=== PATIENT | female | born 1980 | race Caucasian/White ===

== ENCOUNTER 2017-10-06 08:17 | Emergency (ER) | payer OTHER ==
[~2017-10-06] VITALS: Ht 185.4 cm; Wt 131.5 kg
[~2017-10-06 08:17] MED LIST: AMOCLA875 PO; Amoxicillin875 MG PO; Augmentin 500-1 EACH PO; CENTRUM ULTRA1 EACH PO; CLIN300 PO; CYCL10 PO; Flonase 0.05% N16 GM; HYDR1TAB94 PO; Hydrocodone-Ap1 EA23 PO; IBUP800 PO; MAGIC MOUTHWASH; Mobic15 MG PO; NAPR500 PO; Norco 5-325 Ta1 EACH PO; PRENATAL VITAM1 EAC2 PO; PSEU120ER PO; Prednisone20 MG PO; SULTRIDS PO; TRAZ100 PO; Ultram50 MG PO
[2017-10-06] MEDS ORDERED: CITA20 PO (08:37)
[2017-10-06] MEDS ORDERED: LISI5 PO (08:37)
[2017-10-06] MEDS ORDERED: HYDR1TAB94 PO (09:53)
[2018-08-04] MEDS ORDERED: TRAM50 PO (08:37)
== END 2017-10-06 10:15 | disposition home or self-care (01) ==
LOC: ER 08:17
DX: S93.492A Sprain of other ligament of left ankle, initial encounter (principal); S40.011A Contusion of right shoulder, initial encounter; W10.9XXA Fall (on) (from) unspecified stairs and steps, initial encounter; Z79.899 Other long term (current) drug therapy; F17.200 Nicotine dependence, unspecified, uncomplicated
CPT/HCPCS: 73610; 99283

== ENCOUNTER 2019-01-08 11:23 | Emergency (ER) | payer OTHER ==
[~2019-01-08] VITALS: Ht 182.9 cm; Wt 125.6 kg
[~2019-01-08 11:23] MED LIST changes: +CITA20 PO; +LISI5 PO; +TRAM50 PO
[2019-01-08] MEDS ORDERED: Sudogest60 MG PO (12:09)
[2019-01-08] MEDS ORDERED: Norco 5-325 Ta1 EACH PO (12:09)
[2019-01-08] MEDS ORDERED: Amoxicillin875 MG PO (12:09)
== END 2019-01-08 12:15 | disposition home or self-care (01) ==
LOC: ER 11:23
DX: J32.9 Chronic sinusitis, unspecified (principal); Z79.899 Other long term (current) drug therapy; Z79.891 Long term (current) use of opiate analgesic; F32.9 Major depressive disorder, single episode, unspecified; Z87.891 Personal history of nicotine dependence
CPT/HCPCS: 99282

== ENCOUNTER 2019-02-14 10:09 | Emergency (ER) | payer OTHER ==
[~2019-02-14] VITALS: Ht 182.9 cm; Wt 125.6 kg
[~2019-02-14 10:09] MED LIST changes: +Sudogest60 MG PO
[2019-02-14] MEDS ORDERED: Flonase 0.05% N16 GM (10:25)
[2019-02-14] MEDS ORDERED: PROBIOTIC1 EAC1 PO (10:26)
[2019-02-14] MEDS ORDERED: Verotin-Gr Cap1 EACH PO (10:26)
[2019-02-14] MEDS ORDERED: Sudogest30 MG PO (10:36)
[2019-02-14] MEDS ORDERED: Floxin10 ML TOP (10:36)
[2019-02-14] MEDS ORDERED: Cleocin HCl300 MG PO (10:36)
== END 2019-02-14 10:40 | disposition home or self-care (01) ==
LOC: ER 10:09
DX: H66.91 Otitis media, unspecified, right ear (principal); Z79.899 Other long term (current) drug therapy; Z87.891 Personal history of nicotine dependence
CPT/HCPCS: 99282

== ENCOUNTER 2019-02-21 12:58 | Emergency (ER) | payer OTHER ==
[~2019-02-21] VITALS: Ht 182.9 cm; Wt 125.6 kg
[~2019-02-21 12:58] MED LIST changes: +Cleocin HCl300 MG PO; +Floxin10 ML TOP; +PROBIOTIC1 EAC1 PO; +Sudogest30 MG PO; +Verotin-Gr Cap1 EACH PO
[2019-02-21] MEDS ORDERED: Cyclobenzaprine5 MG PO (13:27)
[2019-02-21] MEDS ORDERED: KETO10 PO (13:27)
== END 2019-02-21 14:10 | disposition home or self-care (01) ==
LOC: ER 12:58
DX: M54.41 Lumbago with sciatica, right side (principal); Z79.899 Other long term (current) drug therapy; Z87.891 Personal history of nicotine dependence
CPT/HCPCS: 96372; 99282-25; J1885

== ENCOUNTER 2019-09-07 10:38 | Day surgery (SDC) | payer OTHER ==
[~2019-09-07] VITALS: Ht 182.9 cm; Wt 140.6 kg
[~2019-09-07 10:38] MED LIST changes: +Cyclobenzaprine5 MG PO; +KETO10 PO
[2019-09-07] MEDS ORDERED: CYCL10 PO (11:30)
[2019-09-07] MEDS ORDERED: MELO7.5 PO (11:31)
[2019-09-07] MEDS ORDERED: Prinivil10 MG PO (11:31)
[2019-09-07] MEDS ORDERED: CITA20 PO (11:31)
--- NOTE | 2019-09-07 12:30 | NUR ---
09/07/19 1230 Jordan Singh IUD REMOVED WITHOUT DIFFICULTY. WONDERLY DECLINED SENDING TO PATH FOR GROSS ID HE IS ABLE TO MAKE THAT DETERMINATION.
--- NOTE | 2019-09-07 13:21 | NUR ---
09/07/19 1321 Rina Schultz PT C/O "PINCHY BURNING PAIN". GAVE PATIENT SOME CRACKERS. PLAN OF CARE IS TO MEDICATE WITH PO PAIN MED AFTER PT EATS CRACKERS.
== END 2019-09-07 14:03 | disposition home or self-care (01) ==
LOC: ORSCSDS 10:38
PROVIDERS: Obstetrics & Gynecology
PROC: 0UBC7ZX Excision of Cervix, Via Natural or Artificial Opening, Diagnostic (ICD-10-PCS; principal; 2019-09-07 12:00)
DX: N72 Inflammatory disease of cervix uteri (principal); I10 Essential (primary) hypertension; F17.210 Nicotine dependence, cigarettes, uncomplicated; E66.01 Morbid (severe) obesity due to excess calories; Z68.41 Body mass index [BMI] 40.0-44.9, adult; Z79.899 Other long term (current) drug therapy
CPT/HCPCS: 88305; J0171; J0690; J1100; J2250; J2405; J2704; J3010; J7120

== ENCOUNTER → 2021-08-07 | Outpatient (CLI) | payer OTHER ==
[~2021-08-07] MED LIST changes: +MELO7.5 PO; +Prinivil10 MG PO
[2021-08-07 15:17] LABS: CHOL/HDL RATIO 5.7; Cholesterol 232 mg/dL (50-200); HDL Cholesterol 41 mg/dL (>39); LDL/HDL RATIO 3.6; Low Density Lipoprotein Chol 147 mg/dL (0-110); Triglycerides 219 mg/dL (30-160); Very Low Density Lipoprot Chol 43 mg/dL (6-32)
[2021-08-07 15:38] LABS: Alanine Aminotransfer (ALT/SGP 37 U/L (12-78); Albumin, Blood 3.5 g/dL (3.4-5.0); Albumin/Globulin Ratio 1.1 (0.8-1.8); Alk Phos 70 U/L (50-136); Anion Gap 7 mmol/L (6-16); Aspartate Aminotrans (AST/SGOT 36 U/L (12-37); Bilirubin, Total 0.8 mg/dL (0.1-1.0); Blood Urea Nitrogen 14 mg/dL (8-24); Bun/Creatinine Ratio 19.6 (12.0-20.0); CO2, Blood 24 mmol/L (21-32); Calcium, Blood 8.8 mg/dL (8.5-10.1); Chloride, Blood 103 mmol/L (98-108); Creatinine, Blood 0.71 mg/dL (0.40-1.00); Globulin, Blood 3.3 g/dL (2.2-4.0); Glomerular Filtration Rate >60 (60-); Glucose, Blood 107 mg/dL (70-99); Potassium, Blood 4.4 mmol/L (3.5-5.5); Sodium, Blood 134 mmol/L (136-145); Total Protein, Blood 6.8 g/dL (6.4-8.2)
== END | disposition home or self-care (01) ==
LOC: LAB 12:10 → LAB SHORT 12:10
PROVIDERS: Nurse Practitioner
DX: E78.2 Mixed hyperlipidemia (principal); R73.9 Hyperglycemia, unspecified; I10 Essential (primary) hypertension
CPT/HCPCS: 80053; 80061; 83036

== ENCOUNTER 2021-10-19 17:14 | Inpatient (IN) | payer OTHER ==
[~2021-10-19] VITALS: Ht 182.9 cm; Wt 165.0 kg
[~2021-10-19 17:14] MED LIST changes: -MELO7.5 PO; +MOBIC15 MG PO
[2021-10-19 18:13] LABS: Alanine Aminotransfer (ALT/SGP 33 U/L (12-78); Albumin, Blood 3.8 g/dL (3.4-5.0); Alk Phos 87 U/L (50-136); Anion Gap 4 mmol/L (6-16); Aspartate Aminotrans (AST/SGOT 16 U/L (12-37); BASOPHILS ABSOLUTE AUTO 0.02 K/mm3 (0.00-0.23); BASOPHILS PERCENT AUTO 0 % (0-2); Bilirubin, Total 0.6 mg/dL (0.1-1.0); Blood Urea Nitrogen 12 mg/dL (8-24); Bun/Creatinine Ratio 13.5 (12.0-20.0); CO2, Blood 26 mmol/L (21-32); Calcium, Blood 9.2 mg/dL (8.5-10.1); Chloride, Blood 103 mmol/L (98-108); Creatinine, Blood 0.89 mg/dL (0.40-1.00); EOSINOPHILS ABSOLUTE AUTO 0.11 K/mm3 (0.00-0.68); EOSINOPHILS PERCENT AUTO 2 % (0-6); Globulin, Blood 3.7 g/dL (2.2-4.0); Glomerular Filtration Rate >60 (60-); Glucose, Blood 110 mg/dL (70-99); Hematocrit 40.2 % (33.0-51.0); Hemoglobin 13.8 g/dL (11.5-16.0); IMMATURE GRAN ABSOLUTE AUTO 0.01 K/mm3 (0.00-0.10); IMMATURE GRAN PERCENT AUTO 0 % (0-1); LYMPHOCYTES ABSOLUTE AUTO 2.01 K/mm3 (0.84-5.20); LYMPHOCYTES PERCENT AUTO 35 % (21-46); MONOCYTES ABSOLUTE AUTO 0.27 K/mm3 (0.16-1.47); MONOCYTES PERCENT AUTO 5 % (4-13); Mean Corpuscular HGB 29.7 pg (26.0-34.0); Mean Corpuscular HGB Conc 34.3 g/dL (31.5-36.5); Mean Corpuscular Volume 87 fL (80-100); Mean Platelet Volume 10.6 fL (9.1-12.4); NEUTROPHILS ABSOLUTE AUTO 3.41 K/mm3 (1.96-9.15); NEUTROPHILS PERCENT AUTO 59 % (41-73); Platelet Count 255 K/mm3 (150-400); Potassium, Blood 3.9 mmol/L (3.5-5.5); RDW Coefficient Variation 11.9 % (11.7-14.2); RDW Standard Deviation 37.9 fL (35.1-46.3); Red Blood Cell Count 4.65 M/mm3 (3.80-5.20); Sodium, Blood 133 mmol/L (136-145); Total Protein, Blood 7.5 g/dL (6.4-8.2); White Blood Cell Count 5.83 K/mm3 (4.00-11.30)
[2021-10-19] MEDS ORDERED: CITALOPRAM HBR40 M6 PO ×2 (20:06)
[2021-10-19] MEDS ORDERED: TRAZ100 PO ×2 (20:07)
[2021-10-19] MEDS ORDERED: CYMBALTA30 M2 PO ×2 (20:08)
[2021-10-19] MEDS ORDERED: NEURONTIN300 MG PO ×2 (20:09)
[2021-10-19] MEDS ORDERED: GABA300 PO ×4 (20:09→20:10)
[2021-10-19] MEDS ORDERED: TIZA4 PO ×2 (20:11)
[2021-10-19] MEDS ORDERED: PROBIOTIC1 EA13 PO ×2 (20:12)
[2021-10-19] MEDS ORDERED: B-121000 MC3 PO ×2 (20:12)
[2021-10-19] MEDS ORDERED: OXYACE7.5T PO ×2 (20:13)
[2021-10-19] MEDS ORDERED: PRENATAL TABLE1 EAC2 PO ×2 (20:13)
[2021-10-19] MEDS ORDERED: MELATONIN1010 PO ×2 (20:13)
[2021-10-20] MEDS ORDERED: ALLERCLEAR10 MG PO ×2 (00:42)
[2021-10-20] MEDS ORDERED: PSEUDOEPHEDRINE30 M1 PO ×2 (00:44)
[2021-10-20] MEDS ORDERED: BISA5EC PO ×2 (00:45)
--- NOTE | 2021-10-20 06:07 | NUR ---
SHIFT SUMMARY PATIENT ALERT AND ORIENTED. MEDICATED PER EMAR FOR PAIN. HAD SHORTNESS OF BREATH UPON EXERTION. NO ACUTE ISSUES NOTED OVERNIGHT. CALL LIGHT WITHIN REACH. REPORT GIVEN TO ONCOMING RN.
[2021-10-20 09:16] LABS: BASOPHILS ABSOLUTE AUTO 0.03 K/mm3 (0.00-0.23); BASOPHILS PERCENT AUTO 1 % (0-2); EOSINOPHILS ABSOLUTE AUTO 0.14 K/mm3 (0.00-0.68); EOSINOPHILS PERCENT AUTO 3 % (0-6); Hematocrit 38.3 % (33.0-51.0); Hemoglobin 12.9 g/dL (11.5-16.0); IMMATURE GRAN ABSOLUTE AUTO 0.01 K/mm3 (0.00-0.10); IMMATURE GRAN PERCENT AUTO 0 % (0-1); LYMPHOCYTES ABSOLUTE AUTO 1.66 K/mm3 (0.84-5.20); LYMPHOCYTES PERCENT AUTO 38 % (21-46); MONOCYTES ABSOLUTE AUTO 0.34 K/mm3 (0.16-1.47); MONOCYTES PERCENT AUTO 8 % (4-13); Mean Corpuscular HGB 29.8 pg (26.0-34.0); Mean Corpuscular HGB Conc 33.7 g/dL (31.5-36.5); Mean Corpuscular Volume 89 fL (80-100); Mean Platelet Volume 10.6 fL (9.1-12.4); NEUTROPHILS ABSOLUTE AUTO 2.19 K/mm3 (1.96-9.15); NEUTROPHILS PERCENT AUTO 50 % (41-73); Platelet Count 206 K/mm3 (150-400); RDW Coefficient Variation 11.9 % (11.7-14.2); RDW Standard Deviation 38.4 fL (35.1-46.3); Red Blood Cell Count 4.33 M/mm3 (3.80-5.20); White Blood Cell Count 4.37 K/mm3 (4.00-11.30)
[2021-10-20 09:29] LABS: International Normalized Ratio 0.99; Prothrombin Time Results 10.4 Sec (9.7-11.5)
[2021-10-20 15:54] LABS: U Cannabinoids Screen DETECTED
[2021-10-20 15:55] LABS: U Amphetamine Screen Not Detected; U Barbituate Screen Not Detected; U Benzodiazapine Screen Not Detected; U Buprenorphine Screen Not Detected; U Cocaine Screen Not Detected; U Methadone Screen Not Detected; U Methamphetamine Screen Not Detected; U Opiates Screen Not Detected; U Oxycodone Screen DETECTED; U Phencyclidine Screen Not Detected; U Propoxyphene Screen Not Detected
--- NOTE | 2021-10-20 19:38 | NUR ---
SHIFT SUMMARY PT RESTING QUIETLY AT START OF SHIFT. WOKE EASILY FOR CARE. PT WAITING TO GO FOR CT BIOPSY IN AM, WHICH WAS DELAYED. PT TAKEN DOWN AT LUNCH VIA W/C AND LATER RETURNED. PT MEDICATED FOR C/O PAIN AND ANXIETY. DR MURO IN TO SEE PT AND DISCUSSED PLAN OF CARE. NEW ORDERS PLACED FOR PROCEDURE. AM MEDS GIVEN PER EMAR. PT INDEPENDENT TO BTHRM USING CANE AT BASELINE. PT REFUSING NONSKID SOCKS FOR SAFETY. RESTED QUIETLY THIS AFTERNOON. CALL LT IN REACH. ABLE TO MAKE NEEDS KNOWN.
--- NOTE | 2021-10-21 07:00 | NUR ---
Patient agreeable to having a student nurse involved in her care today.
--- NOTE | 2021-10-21 08:30 | NUR ---
SPOKE TO DR MURO- PT REQUESTING HER MORNING MEDS TO BE GIVEN AT 0600. PT STATES SHE TAKES THEM AT 0630 AT HOME. ALSO PT HAS 900MG GABAPENTIN ORDERED AT 0900 AND THEN AGAIN AT 1100 [address] STEINBERG ORDER RECIEVED TO CHANGE AM MEDS TO 0600 AND AFTERNOON DOSE OF GABAPENTIN TO 1400 WHEN THE PT USUALLY TAKES IT.
--- NOTE | 2021-10-21 13:32 | NUR ---
PT CALLED FOR ASSISTANCE- PT REQUESTED ASSISTANCE AFTER RETURNING TO THE BED FROM THE BATHROOM. PT STATED THAT SHE FELT "WEIRD AND HER HEAD WAS CONGESTED" PT ALSO STATED SHE FELT HOT AND FLUSHED. PT WAS NOTICABLY RED, HER FACE WAS WARM TO THE TOUCH, TEMPORAL THERMOMETER READS 99.5 PRIOR TO THE START OF VANCO INFUSION TEMP WAS 97.4. RESPIRATORY RATE WAS ELEVATED WELL. VANCO INFUSION WAS STOPPED UPON STAFF ENTERING THE ROOM AND IV WAS FLUSHED, VITALS TAKEN, DR MURO NOTIFIED, RECIEVED ORDER FOR IV BENADRYL NOW. WHILE THE PT WAS RECIEVING THE IV BENADRYL SHE STATED SHE FELT LIKE SHE COULD BREATHE AGAIN AND HER SINUS CONGESTION IMPROVED, RESP RATE DECREASED, AND THE NOTICABLE REDNESS REDUCED. ALL REDNESS HAS DISAPATED PT STILL WARM TO THE TOUCH AT THIS TIME, WILL CTM.
--- NOTE | 2021-10-21 18:51 | NUR ---
SHIFT SUMMARY- PT HAS HAD NO ACUTE CHANGES T/O THE DAY. SHE DID HAVE AN ADVERSE REACTION TO HER VANCO INFUSION, SPOKE TO PHARMACIST SHE AGREED THIS SHOULD BE ADDED TO THE PT ALLERGY LIST WITH THE NOTATION "RED FRITZ SYNDROME." THIS WAS DONE. SEE PREVIOUS NOTE FOR DETAILS OF THE EVENT. PT CURRENTLY IN BED, CALL LIGHT IN REACH, SHE CALLS APPROPRIATELY. PT MED TIMES WERE CHANGED TO MORE CLOSELY MATCH WHAT SHE DOES AT HOME. PT ALERT AND ORIENTED AND HAS BEEN HAVING SBA TO THE BATHROOM FOR SAFETY.
--- NOTE | 2021-10-22 05:14 | NUR ---
Patient is alert and oriented x4, independent. No signs of distress. Complains of of 8/10 back pain that is chronic. Also patient reports anxiety and difficulty sleeping, PRN medications given. Patient states effectiveness. Zyvox is started for the first time from [facility] due to her adverse reaction in the morning. Zyvox showed no concerns of adverse reaction, patient tolerated infusion well. Patient has a right arm PICC, no signs of infiltration. Patient is provided with snack and fluids. Patient had a BM x1. All needs met. Patient is sleeping on bed in lowest position. Call light within reach.
--- NOTE | 2021-10-22 09:54 | NUR ---
@ 0859, R ARM PICC LINE INTACT AND PATENT. DRESSING WNL. FLUSHED AND PATENT INFUSING ABX CURRENTLY. HL INTACT L AC.
--- NOTE | 2021-10-22 15:09 | NUR ---
DR. MURO REQUESTED COPY OF MRI REPORT PATIENT HAD AT ANOTHER FACILITY. PATIENT STATES IT WAS DONE AT [facility] AT [address] IN [place]. THIS INFORMATION GIVEN TO IOANA PAINTER, SECTION CUTTER NURSE FOR FOLLOW UP.
--- NOTE | 2021-10-22 17:06 | NUR ---
C/O PAIN TO LOWER BACK A FEW TIMES AND MEDICATED PER E-MAR. IVF INFUSING WITHOUT DIFFICULTY INTO R ARM PICC LINE. HL INTACT L AC. 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 AAO X 4. AMBULATES WITH CANE NORMALLY AND IN THE ROOM. HAD BM TODAY. VOIDS WITHOUT DIFFICULTY. TOLERATED PO FOOD AND FLUIDS. NO SKIN ISSUES RELATED TO JACQUI SYNDROME NOTED TODAY. IV ABX CONTINUES PER E-MAR. WILL MONITOR.
--- NOTE | 2021-10-23 03:24 | NUR ---
SHIFT SUMMARY: PT IS A/OX4. SHE CURRENTLY HAS NS INFUSING @ 50ML/HR W/ INTERMITTENT ABX. HER ABX WERE CHANGED D/T HER JACQUI SYNDROME WITH THE VANCO INFUSION. HER PICC IN THE RICCARDO IS FLUSHING WELL AND SHE HAS A PIV IN HER LF AC WELL. SHE IS INDEPENDENT IN THE ROOM WITH A CANE AT BEDSIDE. NO OTHER CHANGES TO REPORT THIS NOC SHIFT. WE'LL CONTINUE TO MONITOR THE REMAINDER OF THE SHIFT.
--- NOTE | 2021-10-23 13:47 | NUR ---
Spiritual Care visit referred by nurse fountain manager. Pt. sitting up in bed displayed evidence of significant anxiety and emtional instability. Listened empathetically. Provided a calming presence. Facilitated a brief life history. Explored issiues of shanique and belief. Pt. displayed evidence of reduced stress, and verbalized having increased courage. Offered anticipated guidance to advocate for self at discharge. Prayed for Pt. Pt. verbalized gratitude for pastoral spiritual care.
--- NOTE | 2021-10-23 15:59 | NUR ---
mri- called dr fernando gutierrez cannot do mri here. size/wt is problem. she still wants done. asked to see if can do any other way. called mri immaging. sr radiology kendra hirsch states can do if have a rn with pt and can do on tuesday at 12:45. will need to schedule ambulance transport for pt. advised pt of plan. advised cardiology rn of plan.
--- NOTE | 2021-10-23 18:29 | NUR ---
PT RESTARTING VANCO, WHICH CAUSED JACQUI SYNDROME. PHA IS LOWERING RATE, WE ARE STARTING NOW AND WILL MONITOR. STARTED AT 50/HR FOR 10ML/HR, NO ADVERSE REACTION. UPPED TO 90ML/HR ORDERED. WILL CONTINUE TO MONITOR AT ROOM FOR SHORT TIME. PT A/O AND CAN CALL IF HAS CHANGES. NOTED PRIOR NOTES, PT TO GET MRI AT [facility] ON TUESDAY 12:45. BED IN LOW POSITIOIN, CALL LITE IN REACH, CALLS APPROP
--- NOTE | 2021-10-23 18:45 | NUR ---
PT PRESENTLY TALKING ON PHONE, NO SYMPTOMS NOTED. PT STATES FEELS OKAY. WILL CONTINUE TO MONITOR THRU END OF SHIFT
--- NOTE | 2021-10-24 06:33 | NUR ---
PATIENT HAD A GOOD, UNEVENTFUL NIGHT. MEDICATED FOR PAIN THREE TIMES PER EMAR, FOR CHRONIC PAIN. MEDICATION SEEMS TO JUST TAKE THE EDGE OFF HOWEVER DOES NOT CREATE A HUGE IMPROVEMENT IN PAIN CONTROL. PATIENT CONTINUES ON IV VANCO AND HAS BEEN TOLERATING WELL AT THE SLOWER INFUSION RATE. VITALS STABLE. PATIENT SLEPT WELL LAST NIGHT AND CALLS APPROPRIATELY FOR STAFF ASSIST NEEDED. CALL LIGHT WITHIN REACH.
[2021-10-24 06:54] LABS: BASOPHILS ABSOLUTE AUTO 0.02 K/mm3 (0.00-0.23); BASOPHILS PERCENT AUTO 0 % (0-2); EOSINOPHILS ABSOLUTE AUTO 0.15 K/mm3 (0.00-0.68); EOSINOPHILS PERCENT AUTO 3 % (0-6); Hematocrit 38.2 % (33.0-51.0); Hemoglobin 12.8 g/dL (11.5-16.0); IMMATURE GRAN ABSOLUTE AUTO 0.01 K/mm3 (0.00-0.10); IMMATURE GRAN PERCENT AUTO 0 % (0-1); LYMPHOCYTES ABSOLUTE AUTO 1.59 K/mm3 (0.84-5.20); LYMPHOCYTES PERCENT AUTO 35 % (21-46); MONOCYTES ABSOLUTE AUTO 0.34 K/mm3 (0.16-1.47); MONOCYTES PERCENT AUTO 8 % (4-13); Mean Corpuscular HGB 30.2 pg (26.0-34.0); Mean Corpuscular HGB Conc 33.5 g/dL (31.5-36.5); Mean Corpuscular Volume 90 fL (80-100); Mean Platelet Volume 10.6 fL (9.1-12.4); NEUTROPHILS ABSOLUTE AUTO 2.41 K/mm3 (1.96-9.15); NEUTROPHILS PERCENT AUTO 53 % (41-73); Platelet Count 205 K/mm3 (150-400); RDW Coefficient Variation 12.1 % (11.7-14.2); RDW Standard Deviation 39.5 fL (35.1-46.3); Red Blood Cell Count 4.24 M/mm3 (3.80-5.20); White Blood Cell Count 4.52 K/mm3 (4.00-11.30)
--- NOTE | 2021-10-24 11:31 | NUR ---
PT TOLERATIING VANCO.. NO REDNESS NOTED. RUNNING AT 90ML/HR. OK PER PHARMACY
--- NOTE | 2021-10-24 14:27 | NUR ---
SPOKE TO MICHAEL GUY SWITCH PEPCID IV TO OMEPRAZOLE PO 20 MG DAILY, DONE
--- NOTE | 2021-10-24 16:10 | NUR ---
PT QUITE PLEASANT TODAY. TALKATIVE. LESS ANX THAN YEST. VANCO TURNED DOWN TO 90/HR HAS WORKED WELL. NO JACQUI SYNDROME NOTED. PT AMBULATES SELF TO BATHROOM. PAIN MANAGED WITH AVAIL MEDS TO PT SATISFACTION. PENDING IMMAGING ON TUESDAY AT [facility]. BED IN LOW POSITION, CALL LITE IN REACH, CALLS APPROP
[2021-10-24 17:36] LABS: Creatinine, Blood 0.94 mg/dL (0.40-1.00); Vancomycin, Trough 23.5 ug/mL (5.0-10.0)
--- NOTE | 2021-10-25 06:10 | NUR ---
SHIFT SUMMARY: PATIENT CONTINUES TO REPORT BACK PAIN 04/14. MEDICATED PER NOV WITH GOOD EFFECT. REQUESTED SLEEP AIDE ALONG WITH THE SCHEDULED MELATONIN, TRAZADONE WAS GIVEN WITH GOOD EFFECT. PATIENT WAS EMOTIONALY LAIBLE, UPSET ABOUT INFECTION AND PAIN AND NOT BEING HOME FOR DAUGHTERS BIR, PRN XANAX WAS GIVEN WITH GOOD EFFECT. PATIENT REFUSED BOWEL CARE MEDS DUE TO BM ON 10/24/21, EDUCATION WAS GIVEN, PATIENT CONTINUES TO REFUSE.
--- NOTE | 2021-10-25 18:10 | NUR ---
PATIENT IS AWAKE,ALERT AND ORIENTED TIMES THREE. PAIN CONTROL. PATIENT ATE 100% OF MEAL. PATIENT DENIES ISSUE AND CONCERNS. PATIENT IS HOPING TO BE DISCHRAGE TOMORROW.
--- NOTE | 2021-10-26 04:43 | NUR ---
SHIFT SUMMARY: PATIENT CONTINUES TO REPORT BACK PAIN, 04/14. PRN ZANAFLEX, OXYCODONE ARE GIVEN WITH GOOD EFFECT. PATIENT ALSO ASKS FOR TRAZADONE FOR INSOMNIA, MED WAS GIVEN WITH GOOD EFFECT. UP TO THE BATHROOM INDEPENDANTLY, REPORTS BM YESTERDAY ON DAY SHIFT AND REFUSED BOWEL CARE MEDICATIONS.
[2021-10-26 09:08] LABS: Creatinine, Blood 0.83 mg/dL (0.40-1.00); Vancomycin, Trough 20.7 ug/mL (5.0-10.0)
--- NOTE | 2021-10-26 19:24 | NUR ---
SHIFT SUMMARY; PATIENT TRANSPORTED TO [facility] TODAY AND WAS UNABLE TO RECEIVE OUTPATIENT MRI NEEDED A 1.5 MRI AND [facility] HAS A 2.0 MRI. PATIENT HAS EAR IMPLANT AND 2.0 WOULD CAUSE IMPLANT TO GET HEATED AND WOULD POSSIBLY DAMAGE IT. PATIENT VERY TEARY TODAY SHE IS WANTING TO GO HOME AND DO OUTPATIENT IV VANCO AT THE [facility]. SHE WILL ASK MD TOMORROW IF POSSIBLE FOR HER TO GO HOME. CLAUDY CARVALHO RN
--- NOTE | 2021-10-27 06:32 | NUR ---
PM SHIFT SUMMARY SHELDON HAD COMPLAINTS OF LOWER BACK / RIGHT FLANK PAIN DURING SHIFT. SHE WAS MEDICATED WITH PRN OXYCODONE. BODY FLUID AND TISSUE SHOW POSITIVE STAPH. SHE HAD NO OTHER COMPLAINTS DURING SHIFT AND SLEPT THE WHOLE EVENING. SHE WILL BE DOING OUTPATIENT MRI SHE WAS TOO BIG FOR THE MACHINE HERE. RIGHT UPPER ARM PICC LINE. SHE HAS A VANCO TROUGH AT 0900 TODAY WITH AM NURSE.PLAN IS FOR 6 WEEKS OF ABX VANCO AND CEFTRIAXONE.
[2021-10-27 09:35] LABS: Vancomycin, Trough 16.9 ug/mL (5.0-10.0)
--- NOTE | 2021-10-27 18:33 | NUR ---
SHIFT SUMMARY; NO ACUTE CHANGES IN CONDITION NOTED TODAY. PATIENT STILL RECEIVING IV ANTIBIOTICS. PATIENT'S DAUGHTER WHO IS 12 CAME AND SPENT DAY WITH HER. SHARED WITH PATIENT THAT SHE MAY DISCHARGE IN THE NEXT FEW DAYS DEPENDING ON WHAT ID SAYS. WILL REMAINS AVAILABLE FOR THIS PATIENT FOR ANY WANTS OR NEEDS UNTIL SHIFT REPORT AND HAND OFF TO NOC SHIFT RN.
[2021-10-28 05:02] LABS: BASOPHILS ABSOLUTE AUTO 0.03 K/mm3 (0.00-0.23); BASOPHILS PERCENT AUTO 1 % (0-2); EOSINOPHILS ABSOLUTE AUTO 0.21 K/mm3 (0.00-0.68); EOSINOPHILS PERCENT AUTO 4 % (0-6); Hematocrit 38.6 % (33.0-51.0); Hemoglobin 12.6 g/dL (11.5-16.0); IMMATURE GRAN ABSOLUTE AUTO 0.02 K/mm3 (0.00-0.10); IMMATURE GRAN PERCENT AUTO 0 % (0-1); LYMPHOCYTES PERCENT AUTO 28 % (21-46); MONOCYTES ABSOLUTE AUTO 0.44 K/mm3 (0.16-1.47); MONOCYTES PERCENT AUTO 8 % (4-13); Mean Corpuscular HGB 29.3 pg (26.0-34.0); Mean Corpuscular HGB Conc 32.6 g/dL (31.5-36.5); Mean Corpuscular Volume 90 fL (80-100); Mean Platelet Volume 10.7 fL (9.1-12.4); NEUTROPHILS ABSOLUTE AUTO 3.25 K/mm3 (1.96-9.15); NEUTROPHILS PERCENT AUTO 60 % (41-73); Platelet Count 195 K/mm3 (150-400); RDW Standard Deviation 38.9 fL (35.1-46.3); White Blood Cell Count 5.45 K/mm3 (4.00-11.30)
--- NOTE | 2021-10-28 05:19 | NUR ---
NO ACUTE CHANGES IN PATIENT. PATIENT IS ALERT AND ORIENTED X4. PRN MEDICATION XANAX GIVEN TO PATIENT FOR ANXIETY. PERCOCET GIVEN FOR ONGOING BACK PAIN AND. ZANAFLEX GIVEN FOR MUSCLE SPASM/PAIN. PATIENT SLEPT THROUGHOUT THE ENTIRE NIGHT FROM 10PM-5AM. LABS DRAWN ON PATIENT AROUND 5 AM. PATIENT MIGHT STILL BE DISCHARGED TODAY BASED ON MD APPROVAL. WILL REPORT TO ONCOMING NURSE.
[2021-10-28 05:37] LABS: Alanine Aminotransfer (ALT/SGP 75 U/L (12-78); Albumin, Blood 3.2 g/dL (3.4-5.0); Alk Phos 95 U/L (50-136); Anion Gap 6 mmol/L (6-16); Aspartate Aminotrans (AST/SGOT 42 U/L (12-37); Bilirubin, Total 0.5 mg/dL (0.1-1.0); Blood Urea Nitrogen 13 mg/dL (8-24); Bun/Creatinine Ratio 17.6 (12.0-20.0); C-REACTIVE PROTEIN, EXT RANGE 0.686 mg/dL (0.000-0.300); CO2, Blood 27 mmol/L (21-32); Calcium, Blood 8.9 mg/dL (8.5-10.1); Chloride, Blood 106 mmol/L (98-108); Creatinine, Blood 0.74 mg/dL (0.40-1.00); Globulin, Blood 3.2 g/dL (2.2-4.0); Glomerular Filtration Rate >60 (60-); Glucose, Blood 102 mg/dL (70-99); Sodium, Blood 139 mmol/L (136-145); Total Protein, Blood 6.4 g/dL (6.4-8.2)
[2021-10-28] MEDS ORDERED: Acetaminophen650 M1 PO ×2 (16:57)
[2021-10-28] MEDS ORDERED: CEFTRIAXONE2 G1 IV ×2 (16:58)
[2021-10-28] MEDS ORDERED: Nicoderm Cq1 EACH TOP ×2 (16:59)
[2021-10-28] MEDS ORDERED: OMEP20ER PO ×2 (17:00)
--- NOTE | 2021-10-28 17:59 | NUR ---
PT DISCHARGED THE PT VERBALIZED UNDERSTANDING OF THE DC ORDERS. PT'S PRESCRIPTIONS FAXED TO [facility] REQUESTED. A FOLLOW UP APPOINTMENT WITH HER PCP WAS MADE BEFORE DISCHARGE. AN APPOINTMENT WITH THE [facility] WAS MADE BEFORE DC. PICC LINE IN PLACE AND SECURE. PT WAS TRANSFERED VIA WHEELCHAIR ACCOMPANIED BY THE [facility] UNDERWRITER. PT APPEARED TO BE BREATHING EASILY AT THE TIME OF DC
== END 2021-10-28 17:22 | disposition home or self-care (01) | DRG 95 ==
LOC: ER 17:14 → MEDS 17:15
PROVIDERS: Family Medicine; Internal Medicine; Student in an Organized Health Care Education/Training Program; ADMIT Family Medicine
PROC: 05HY33Z Insertion of Infusion Device into Upper Vein, Percutaneous Approach (ICD-10-PCS; 2021-10-27)
PROC: 3E02340 Introduction of Influenza Vaccine into Muscle, Percutaneous Approach (ICD-10-PCS; principal; 2021-10-28)
DX: G06.1 Intraspinal abscess and granuloma (principal); M46.26 Osteomyelitis of vertebra, lumbar region; Z68.42 Body mass index [BMI] 45.0-49.9, adult; M46.46 Discitis, unspecified, lumbar region; I10 Essential (primary) hypertension; E66.01 Morbid (severe) obesity due to excess calories; E78.5 Hyperlipidemia, unspecified; M79.2 Neuralgia and neuritis, unspecified; F41.8 Other specified anxiety disorders; F17.210 Nicotine dependence, cigarettes, uncomplicated; Z23 Encounter for immunization; Z79.899 Other long term (current) drug therapy; Z90.89 Acquired absence of other organs; Z98.890 Other specified postprocedural states; Z98.891 History of uterine scar from previous surgery
CPT/HCPCS: 20225; 36415; 36569; 77012; 80053; 80202; 82565; 83605; 85025; 85610; 85651; 85730; 86140; 87040; 87070; 87071; 87075; 87077; 87081; 87186; 87205; 88108; 88307; 90686; 96374; 96375; 96376; 99284-25; A9270; C1751; G0009; G0378; J0696; J1170; J1200; J2020; J2405; J2543; J3370; J7030; J7050

== ENCOUNTER 2021-10-30 00:22 | Day surgery (SDC) | payer OTHER ==
[~2021-10-30 00:22] MED LIST changes: +ALLERCLEAR10 MG PO; +Acetaminophen650 M1 PO; +B-121000 MC3 PO; +BISA5EC PO; +CEFTRIAXONE2 G1 IV; +CITALOPRAM HBR40 M6 PO; +CYMBALTA30 M2 PO; +GABA300 PO; +MELATONIN1010 PO; +NEURONTIN300 MG PO; +Nicoderm Cq1 EACH TOP; +OMEP20ER PO; +OXYACE7.5T PO; +PRENATAL TABLE1 EAC2 PO; +PROBIOTIC1 EA13 PO; +PSEUDOEPHEDRINE30 M1 PO; +TIZA4 PO
== END 2021-10-30 08:58 | disposition home or self-care (01) ==
LOC: ATC 00:22
DX: M46.46 Discitis, unspecified, lumbar region (principal); G06.1 Intraspinal abscess and granuloma; I10 Essential (primary) hypertension; E78.5 Hyperlipidemia, unspecified; F17.210 Nicotine dependence, cigarettes, uncomplicated
CPT/HCPCS: J0696

== ENCOUNTER 2021-10-31 01:28 | Day surgery (SDC) | payer OTHER | END 2021-10-31 09:31 | disposition home or self-care (01) | LOC: ATC 01:28 | DX: M46.40 Discitis, unspecified, site unspecified (principal) | CPT/HCPCS: J0696 ==

== ENCOUNTER 2021-11-01 00:22 | Day surgery (SDC) | payer OTHER | END 2021-11-01 09:51 | disposition home or self-care (01) | LOC: ATC 00:22 | DX: M46.40 Discitis, unspecified, site unspecified (principal) | CPT/HCPCS: J0696 ==

== ENCOUNTER 2021-11-02 02:52 | Day surgery (SDC) | payer OTHER | END 2021-11-02 09:11 | disposition home or self-care (01) | LOC: ATC 02:52 | DX: M46.40 Discitis, unspecified, site unspecified (principal); L02.212 Cutaneous abscess of back [any part, except buttock and flank] | CPT/HCPCS: J0696 ==

== ENCOUNTER 2021-11-03 00:27 | Day surgery (SDC) | payer OTHER | END 2021-11-03 09:47 | disposition home or self-care (01) | LOC: ATC 00:27 | DX: M46.46 Discitis, unspecified, lumbar region (principal); G06.1 Intraspinal abscess and granuloma; M86.9 Osteomyelitis, unspecified; I10 Essential (primary) hypertension; E78.5 Hyperlipidemia, unspecified; F17.210 Nicotine dependence, cigarettes, uncomplicated | CPT/HCPCS: J0696 ==

== ENCOUNTER 2021-11-04 01:38 | Day surgery (SDC) | payer OTHER | END 2021-11-04 08:54 | disposition home or self-care (01) | LOC: ATC 01:38 | DX: M46.46 Discitis, unspecified, lumbar region (principal); G06.1 Intraspinal abscess and granuloma; M86.9 Osteomyelitis, unspecified; I10 Essential (primary) hypertension; E78.5 Hyperlipidemia, unspecified; F17.210 Nicotine dependence, cigarettes, uncomplicated | CPT/HCPCS: 96374; J0696 ==

== ENCOUNTER 2021-11-06 01:25 | Day surgery (SDC) | payer OTHER | END 2021-11-06 09:00 | disposition home or self-care (01) | LOC: ATC 01:25 | DX: M46.40 Discitis, unspecified, site unspecified (principal); I10 Essential (primary) hypertension; F17.210 Nicotine dependence, cigarettes, uncomplicated | CPT/HCPCS: J0696 ==

== ENCOUNTER 2021-11-07 01:45 | Day surgery (SDC) | payer OTHER | END 2021-11-07 09:40 | disposition home or self-care (01) | LOC: ATC 01:45 | DX: M46.40 Discitis, unspecified, site unspecified (principal); L02.818 Cutaneous abscess of other sites | CPT/HCPCS: J0696 ==

== ENCOUNTER 2021-11-08 00:45 | Day surgery (SDC) | payer OTHER ==
--- NOTE | 2021-11-08 09:36 | NUR ---
PT REPORTS NOT SLEEPING WELL LAST NIGHT. PT STATES SHE HAS AN EAR INFECTION. PT STATES SHE HAS NOT BEEN EVALUATED FOR AN EAR INFECTION, BUT HAS A CALL INTO HER PCP TO BE SEEN TOMORROW TO GET RX FOR EAR DROPS. PT REPORTS LONG HISTORY SINCE CHILDHOOOD OF EAR INFECTIONS. UNABLE TO OBTAIN TEMP TODAY, PT SWEATING. PT'S BP IS ELEVATED TODAY. PT STATES BP HAS BEEN RUNNING HIGH AND SHE IS GOING TO TALK WITH HER PCP TOMORROW ABOUT THAT WELL. ADDRESSED MY CONCERN WITH EAR PAIN, ELEVATED BP, AND SWEATING WITH PT. ADVISED PT SHE NEEDS TO BE SEEN IN THE ER BY A PHYSICIAN THESE COULD BE SIGNS OF SOMETHING MORE SERIOUS TO INCLUDE STROKE. PT REFUSES TO BE SEEN STATES SHE HAS DOGS IN THE CAR AND HAS TO [place] HER DAUGHTER. I ASKED IF IT SHE COULD AT LEAST SWING BY URGENT CARE, AND PT DECLINES, STATING SHE HAS FELT THIS WAY BEFORE AND SHE WILL JUST WAIT TO HEAR FROM HER DR TOMORROW. PT DOES NOT HAVE A WAY TO CHECK BP AT HOME. PT STATES SHE IS GOING TO GO HOME AND LAY DOWN AND REST. DISCUSSED CALLING AN AMBULANCE IF SYMPTOMS PROGRESS. PT VERBALIZES UNDERSTANDING OF SIGNS OF A MEDICAL EMERGENCY.
== END 2021-11-08 09:35 | disposition home or self-care (01) ==
LOC: ATC 00:45
DX: M46.46 Discitis, unspecified, lumbar region (principal); G06.1 Intraspinal abscess and granuloma; M86.9 Osteomyelitis, unspecified; I10 Essential (primary) hypertension; E78.5 Hyperlipidemia, unspecified; F17.210 Nicotine dependence, cigarettes, uncomplicated
CPT/HCPCS: J0696

== ENCOUNTER 2021-11-09 06:04 | Day surgery (SDC) | payer OTHER | END 2021-11-09 08:59 | disposition home or self-care (01) | LOC: ATC 06:04 | DX: M46.46 Discitis, unspecified, lumbar region (principal); G06.1 Intraspinal abscess and granuloma; M86.9 Osteomyelitis, unspecified; I10 Essential (primary) hypertension; E78.5 Hyperlipidemia, unspecified; F17.210 Nicotine dependence, cigarettes, uncomplicated | CPT/HCPCS: J0696 ==

== ENCOUNTER 2021-11-10 05:34 | Day surgery (SDC) | payer OTHER | END 2021-11-10 09:15 | disposition home or self-care (01) | LOC: ATC 05:34 | DX: M46.40 Discitis, unspecified, site unspecified (principal) | CPT/HCPCS: J0696 ==

== ENCOUNTER 2021-11-12 00:16 | Day surgery (SDC) | payer OTHER ==
--- NOTE | 2021-11-12 08:51 | NUR ---
PT CALLED AND STATED THAT SHE IS HAVING CAR TROUBLE TODAY AND WILL NOT BE IN FOR HER INFUSION TODAY.
== END 2021-11-12 23:06 | disposition home or self-care (01) ==
LOC: ATC 00:16
DX: M46.40 Discitis, unspecified, site unspecified (principal)
CPT/HCPCS: J0696

== ENCOUNTER 2021-11-13 00:51 | Day surgery (SDC) | payer OTHER | END 2021-11-13 09:18 | disposition home or self-care (01) | LOC: ATC 00:51 | DX: M46.46 Discitis, unspecified, lumbar region (principal); G06.1 Intraspinal abscess and granuloma; M86.9 Osteomyelitis, unspecified; I10 Essential (primary) hypertension; E78.5 Hyperlipidemia, unspecified; F17.210 Nicotine dependence, cigarettes, uncomplicated | CPT/HCPCS: J0696 ==

== ENCOUNTER 2021-11-14 09:26 | Day surgery (SDC) | payer OTHER | END 2021-11-14 09:45 | disposition home or self-care (01) | LOC: ATC 09:26 | DX: M46.40 Discitis, unspecified, site unspecified (principal) | CPT/HCPCS: J0696 ==

== ENCOUNTER 2021-11-15 00:31 | Day surgery (SDC) | payer OTHER | END 2021-11-15 22:46 | disposition home or self-care (01) | LOC: ATC 00:31 | DX: M46.40 Discitis, unspecified, site unspecified (principal); L02.212 Cutaneous abscess of back [any part, except buttock and flank] | CPT/HCPCS: J0696 ==

== ENCOUNTER 2021-11-16 02:12 | Day surgery (SDC) | payer OTHER | END 2021-11-16 09:33 | disposition home or self-care (01) | LOC: ATC 02:12 | DX: M46.46 Discitis, unspecified, lumbar region (principal); G06.1 Intraspinal abscess and granuloma; M86.9 Osteomyelitis, unspecified; I10 Essential (primary) hypertension; E78.5 Hyperlipidemia, unspecified; F17.210 Nicotine dependence, cigarettes, uncomplicated | CPT/HCPCS: J0696 ==

== ENCOUNTER 2021-11-17 04:51 | Day surgery (SDC) | payer OTHER | END 2021-11-17 09:51 | disposition home or self-care (01) | LOC: ATC 04:51 | DX: M46.40 Discitis, unspecified, site unspecified (principal); I10 Essential (primary) hypertension; Z88.1 Allergy status to other antibiotic agents | CPT/HCPCS: 96374; J0696 ==

== ENCOUNTER 2021-11-18 01:21 | Day surgery (SDC) | payer OTHER ==
[2021-11-18 10:17] LABS: BASOPHILS ABSOLUTE AUTO 0.03 K/mm3 (0.00-0.23); BASOPHILS PERCENT AUTO 1 % (0-2); EOSINOPHILS ABSOLUTE AUTO 0.08 K/mm3 (0.00-0.68); EOSINOPHILS PERCENT AUTO 2 % (0-6); Hematocrit 41.7 % (33.0-51.0); IMMATURE GRAN ABSOLUTE AUTO 0.01 K/mm3 (0.00-0.10); IMMATURE GRAN PERCENT AUTO 0 % (0-1); LYMPHOCYTES ABSOLUTE AUTO 1.38 K/mm3 (0.84-5.20); LYMPHOCYTES PERCENT AUTO 27 % (21-46); MONOCYTES ABSOLUTE AUTO 0.29 K/mm3 (0.16-1.47); MONOCYTES PERCENT AUTO 6 % (4-13); Mean Corpuscular HGB 29.8 pg (26.0-34.0); Mean Corpuscular HGB Conc 33.6 g/dL (31.5-36.5); Mean Corpuscular Volume 89 fL (80-100); Mean Platelet Volume 10.3 fL (9.1-12.4); NEUTROPHILS PERCENT AUTO 65 % (41-73); Platelet Count 222 K/mm3 (150-400); RDW Coefficient Variation 12.9 % (11.7-14.2); RDW Standard Deviation 42.3 fL (35.1-46.3); White Blood Cell Count 5.09 K/mm3 (4.00-11.30)
[2021-11-18 11:07] LABS: Alanine Aminotransfer (ALT/SGP 37 U/L (12-78); Albumin, Blood 3.8 g/dL (3.4-5.0); Albumin/Globulin Ratio 1.2 (0.8-1.8); Alk Phos 83 U/L (50-136); Anion Gap 6 mmol/L (6-16); Aspartate Aminotrans (AST/SGOT 26 U/L (12-37); Bilirubin, Total 0.5 mg/dL (0.1-1.0); Blood Urea Nitrogen 11 mg/dL (8-24); Bun/Creatinine Ratio 15.5 (12.0-20.0); CO2, Blood 28 mmol/L (21-32); Calcium, Blood 9.3 mg/dL (8.5-10.1); Chloride, Blood 105 mmol/L (98-108); Creatinine, Blood 0.71 mg/dL (0.40-1.00); Globulin, Blood 3.1 g/dL (2.2-4.0); Glomerular Filtration Rate >60 (60-); Glucose, Blood 120 mg/dL (70-99); Sodium, Blood 139 mmol/L (136-145); Total Protein, Blood 6.9 g/dL (6.4-8.2)
== END 2021-11-18 10:06 | disposition home or self-care (01) ==
LOC: ATC 01:21
PROVIDERS: Internal Medicine Infectious Disease
DX: M46.40 Discitis, unspecified, site unspecified (principal)
CPT/HCPCS: 80053; 85025; 86140; 96374; J0696

== ENCOUNTER 2021-11-19 01:15 | Day surgery (SDC) | payer OTHER | END 2021-11-19 09:00 | disposition home or self-care (01) | LOC: ATC 01:15 | DX: M46.40 Discitis, unspecified, site unspecified (principal); G06.1 Intraspinal abscess and granuloma | CPT/HCPCS: 96374; J0696 ==

== ENCOUNTER 2021-11-20 02:51 | Day surgery (SDC) | payer OTHER | END 2021-11-20 09:48 | disposition home or self-care (01) | LOC: ATC 02:51 | DX: M46.46 Discitis, unspecified, lumbar region (principal); G06.2 Extradural and subdural abscess, unspecified; I10 Essential (primary) hypertension; F17.210 Nicotine dependence, cigarettes, uncomplicated | CPT/HCPCS: 96374; J0696 ==

== ENCOUNTER 2021-11-21 09:42 | Day surgery (SDC) | payer OTHER | END 2021-11-21 09:55 | disposition home or self-care (01) | LOC: ATC 09:42 | DX: M46.46 Discitis, unspecified, lumbar region (principal); G06.1 Intraspinal abscess and granuloma; M86.9 Osteomyelitis, unspecified; I10 Essential (primary) hypertension; E78.5 Hyperlipidemia, unspecified; F17.210 Nicotine dependence, cigarettes, uncomplicated | CPT/HCPCS: 96374; J0696 ==

== ENCOUNTER 2021-11-22 01:00 | Day surgery (SDC) | payer OTHER | END 2021-11-22 09:41 | disposition home or self-care (01) | LOC: ATC 01:00 | DX: M46.40 Discitis, unspecified, site unspecified (principal) | CPT/HCPCS: J0696 ==

== ENCOUNTER 2021-11-23 01:54 | Day surgery (SDC) | payer OTHER | END 2021-11-23 09:17 | disposition home or self-care (01) | LOC: ATC 01:54 | DX: M46.40 Discitis, unspecified, site unspecified (principal) | CPT/HCPCS: J0696 ==

== ENCOUNTER 2021-11-24 03:25 | Day surgery (SDC) | payer OTHER | END 2021-11-24 09:27 | disposition home or self-care (01) | LOC: ATC 03:25 | DX: M46.40 Discitis, unspecified, site unspecified (principal) | CPT/HCPCS: 96374; J0696 ==

== ENCOUNTER 2021-11-25 00:53 | Day surgery (SDC) | payer OTHER ==
[2021-11-25 10:29] LABS: BASOPHILS ABSOLUTE AUTO 0.04 K/mm3 (0.00-0.23); BASOPHILS PERCENT AUTO 1 % (0-2); EOSINOPHILS ABSOLUTE AUTO 0.11 K/mm3 (0.00-0.68); EOSINOPHILS PERCENT AUTO 1 % (0-6); Hematocrit 44.8 % (33.0-51.0); Hemoglobin 14.9 g/dL (11.5-16.0); IMMATURE GRAN ABSOLUTE AUTO 0.04 K/mm3 (0.00-0.10); IMMATURE GRAN PERCENT AUTO 1 % (0-1); LYMPHOCYTES ABSOLUTE AUTO 1.79 K/mm3 (0.84-5.20); LYMPHOCYTES PERCENT AUTO 23 % (21-46); MONOCYTES ABSOLUTE AUTO 0.34 K/mm3 (0.16-1.47); MONOCYTES PERCENT AUTO 4 % (4-13); Mean Corpuscular HGB 29.9 pg (26.0-34.0); Mean Corpuscular HGB Conc 33.3 g/dL (31.5-36.5); Mean Corpuscular Volume 90 fL (80-100); Mean Platelet Volume 10.9 fL (9.1-12.4); NEUTROPHILS ABSOLUTE AUTO 5.41 K/mm3 (1.96-9.15); NEUTROPHILS PERCENT AUTO 70 % (41-73); Platelet Count 278 K/mm3 (150-400); RDW Coefficient Variation 12.8 % (11.7-14.2); Red Blood Cell Count 4.99 M/mm3 (3.80-5.20); White Blood Cell Count 7.73 K/mm3 (4.00-11.30)
[2021-11-25 10:50] LABS: Alanine Aminotransfer (ALT/SGP 112 U/L (12-78); Albumin, Blood 3.9 g/dL (3.4-5.0); Alk Phos 136 U/L (50-136); Anion Gap 1 mmol/L (6-16); Aspartate Aminotrans (AST/SGOT 54 U/L (12-37); Bilirubin, Total 0.3 mg/dL (0.1-1.0); Blood Urea Nitrogen 14 mg/dL (8-24); Bun/Creatinine Ratio 20.3 (12.0-20.0); CO2, Blood 26 mmol/L (21-32); Calcium, Blood 9.2 mg/dL (8.5-10.1); Chloride, Blood 104 mmol/L (98-108); Creatinine, Blood 0.69 mg/dL (0.40-1.00); Globulin, Blood 4.1 g/dL (2.2-4.0); Glomerular Filtration Rate >60 (60-); Glucose, Blood 123 mg/dL (70-99); Potassium, Blood 4.6 mmol/L (3.5-5.5); Sodium, Blood 131 mmol/L (136-145)
--- NOTE | 2021-11-25 11:33 | NUR ---
LABS DRAWN FROM PICC LINE PER HOSPITAL PROTOCOL
== END 2021-11-25 10:00 | disposition home or self-care (01) ==
LOC: ATC 00:53
PROVIDERS: Internal Medicine Infectious Disease
DX: M46.46 Discitis, unspecified, lumbar region (principal); G06.1 Intraspinal abscess and granuloma; I10 Essential (primary) hypertension; F17.210 Nicotine dependence, cigarettes, uncomplicated
CPT/HCPCS: 80053; 85025; 86140; J0696

== ENCOUNTER 2021-11-26 00:39 | Day surgery (SDC) | payer OTHER | END 2021-11-26 23:17 | disposition home or self-care (01) | LOC: ATC 00:39 | DX: M46.40 Discitis, unspecified, site unspecified (principal); I10 Essential (primary) hypertension; E78.5 Hyperlipidemia, unspecified; M79.2 Neuralgia and neuritis, unspecified; Z79.899 Other long term (current) drug therapy | CPT/HCPCS: J0696 ==

== ENCOUNTER 2021-11-30 01:33 | Day surgery (SDC) | payer OTHER | END 2021-11-30 15:15 | disposition home or self-care (01) | LOC: ATC 01:33 | DX: M46.46 Discitis, unspecified, lumbar region (principal); G06.1 Intraspinal abscess and granuloma; I10 Essential (primary) hypertension; E78.5 Hyperlipidemia, unspecified; F17.210 Nicotine dependence, cigarettes, uncomplicated | CPT/HCPCS: 96374; J0696 ==

== ENCOUNTER 2021-12-02 00:41 | Day surgery (SDC) | payer OTHER ==
[2021-12-02 09:56] LABS: BASOPHILS ABSOLUTE AUTO 0.03 K/mm3 (0.00-0.23); BASOPHILS PERCENT AUTO 1 % (0-2); EOSINOPHILS ABSOLUTE AUTO 0.09 K/mm3 (0.00-0.68); EOSINOPHILS PERCENT AUTO 2 % (0-6); Hematocrit 41.4 % (33.0-51.0); Hemoglobin 13.5 g/dL (11.5-16.0); IMMATURE GRAN ABSOLUTE AUTO 0.03 K/mm3 (0.00-0.10); IMMATURE GRAN PERCENT AUTO 1 % (0-1); LYMPHOCYTES ABSOLUTE AUTO 1.06 K/mm3 (0.84-5.20); LYMPHOCYTES PERCENT AUTO 22 % (21-46); MONOCYTES ABSOLUTE AUTO 0.41 K/mm3 (0.16-1.47); MONOCYTES PERCENT AUTO 9 % (4-13); Mean Corpuscular HGB 29.4 pg (26.0-34.0); Mean Corpuscular HGB Conc 32.6 g/dL (31.5-36.5); Mean Corpuscular Volume 90 fL (80-100); Mean Platelet Volume 10.9 fL (9.1-12.4); NEUTROPHILS ABSOLUTE AUTO 3.21 K/mm3 (1.96-9.15); NEUTROPHILS PERCENT AUTO 67 % (41-73); Platelet Count 203 K/mm3 (150-400); RDW Coefficient Variation 12.7 % (11.7-14.2); RDW Standard Deviation 42.1 fL (35.1-46.3); Red Blood Cell Count 4.59 M/mm3 (3.80-5.20); White Blood Cell Count 4.83 K/mm3 (4.00-11.30)
[2021-12-02 10:22] LABS: Alanine Aminotransfer (ALT/SGP 125 U/L (12-78); Albumin, Blood 3.5 g/dL (3.4-5.0); Albumin/Globulin Ratio 1.2 (0.8-1.8); Alk Phos 114 U/L (50-136); Anion Gap 2 mmol/L (6-16); Aspartate Aminotrans (AST/SGOT 67 U/L (12-37); Bilirubin, Total 0.5 mg/dL (0.1-1.0); Blood Urea Nitrogen 16 mg/dL (8-24); CO2, Blood 28 mmol/L (21-32); Calcium, Blood 8.5 mg/dL (8.5-10.1); Chloride, Blood 104 mmol/L (98-108); Globulin, Blood 2.9 g/dL (2.2-4.0); Glomerular Filtration Rate >60 (60-); Glucose, Blood 119 mg/dL (70-99); Potassium, Blood 4.2 mmol/L (3.5-5.5); Sodium, Blood 134 mmol/L (136-145); Total Protein, Blood 6.4 g/dL (6.4-8.2)
== END 2021-12-02 08:55 | disposition home or self-care (01) ==
LOC: ATC 00:41
PROVIDERS: Internal Medicine Infectious Disease
DX: M46.46 Discitis, unspecified, lumbar region (principal); G06.1 Intraspinal abscess and granuloma; M86.9 Osteomyelitis, unspecified; I10 Essential (primary) hypertension; E78.5 Hyperlipidemia, unspecified; F17.210 Nicotine dependence, cigarettes, uncomplicated
CPT/HCPCS: 80053; 85025; 86140; 96374; J0696

== ENCOUNTER 2021-12-03 03:26 | Day surgery (SDC) | payer OTHER ==
--- NOTE | 2021-12-03 09:31 | NUR ---
NOTIFIED DR BAUMAN OFFICE ABOUT PATIENT MISSING 5 APPOINTMENTS IN A ROW. ASKED IF WOULD LIKE TO CONTINUE ANTIBIOTIC THERAPY OR DC PICC LINE. OFFICE IS TO RETURN MY CALL AND FAX ORDERS ONCE DR NIELSEN IS AVAILABLE
== END 2021-12-03 09:05 | disposition home or self-care (01) ==
LOC: ATC 03:26
DX: G06.1 Intraspinal abscess and granuloma (principal); M46.40 Discitis, unspecified, site unspecified
CPT/HCPCS: 96374; J0696

== ENCOUNTER 2021-12-04 00:38 | Day surgery (SDC) | payer OTHER | END 2021-12-04 09:13 | disposition home or self-care (01) | LOC: ATC 00:38 | DX: M46.46 Discitis, unspecified, lumbar region (principal); M46.26 Osteomyelitis of vertebra, lumbar region; I10 Essential (primary) hypertension; E78.5 Hyperlipidemia, unspecified; Z96.20 Presence of otological and audiological implant, unspecified; F17.210 Nicotine dependence, cigarettes, uncomplicated; M79.2 Neuralgia and neuritis, unspecified; F41.8 Other specified anxiety disorders | CPT/HCPCS: J0696 ==

== ENCOUNTER 2021-12-05 09:40 | Day surgery (SDC) | payer OTHER | END 2021-12-05 09:57 | disposition home or self-care (01) | LOC: ATC 09:40 | DX: G06.1 Intraspinal abscess and granuloma (principal) | CPT/HCPCS: J0696 ==

== ENCOUNTER 2021-12-06 00:17 | Day surgery (SDC) | payer OTHER | END 2021-12-06 09:30 | disposition home or self-care (01) | LOC: ATC 00:17 | DX: G06.1 Intraspinal abscess and granuloma (principal) | CPT/HCPCS: J0696 ==

== ENCOUNTER 2021-12-07 01:36 | Day surgery (SDC) | payer OTHER | END 2021-12-07 08:54 | disposition home or self-care (01) | LOC: ATC 01:36 | DX: G06.1 Intraspinal abscess and granuloma (principal) | CPT/HCPCS: J0696 ==

== ENCOUNTER → 2022-11-15 | Outpatient (CLI) | payer OTHER ==
[2022-11-17 10:10] LABS: HPV 16 Negative (Negative); HPV 18 Negative (Negative); HPV OTHER HR TYPES Negative (Negative)
== END | disposition home or self-care (01) ==
LOC: LAB SHORT 17:15 → LAB 17:15
PROVIDERS: Student in an Organized Health Care Education/Training Program
DX: Z01.419 Encounter for gynecological examination (general) (routine) without abnormal findings (principal)
CPT/HCPCS: 87624; G0145

== ENCOUNTER 2023-01-27 22:04 | Emergency (ER) | payer OTHER ==
[~2023-01-27] VITALS: Ht 182.9 cm; Wt 151.9 kg
[2023-01-27 22:13] VITALS: BP 157/109
== END 2023-01-28 00:48 | disposition home or self-care (01) ==
LOC: ER 22:04
DX: T16.2XXA Foreign body in left ear, initial encounter (principal); I10 Essential (primary) hypertension; Z88.1 Allergy status to other antibiotic agents; Z79.899 Other long term (current) drug therapy; Z87.891 Personal history of nicotine dependence; X58.XXXA Exposure to other specified factors, initial encounter
CPT/HCPCS: 69200; 99282-25

== ENCOUNTER 2024-07-04 16:39 | Observation (INO) | payer OTHER ==
[~2024-07-04] VITALS: Ht 182.9 cm; Wt 136.1 kg
[2024-07-04 17:14] LABS: BASOPHILS ABSOLUTE AUTO 0.04 K/mm3 (0.00-0.23); BASOPHILS PERCENT AUTO 0 % (0-2); EOSINOPHILS ABSOLUTE AUTO 0.09 K/mm3 (0.00-0.68); EOSINOPHILS PERCENT AUTO 1 % (0-6); Hematocrit 43.8 % (33.0-51.0); Hemoglobin 15.2 g/dL (11.5-16.0); IMMATURE GRAN ABSOLUTE AUTO 0.02 K/mm3 (0.00-0.10); IMMATURE GRAN PERCENT AUTO 0 % (0-1); LYMPHOCYTES ABSOLUTE AUTO 2.14 K/mm3 (0.84-5.20); LYMPHOCYTES PERCENT AUTO 24 % (21-46); MONOCYTES ABSOLUTE AUTO 0.43 K/mm3 (0.16-1.47); MONOCYTES PERCENT AUTO 5 % (4-13); Mean Corpuscular HGB 29.8 pg (26.0-34.0); Mean Corpuscular HGB Conc 34.7 g/dL (31.5-36.5); Mean Corpuscular Volume 86 fL (80-100); NEUTROPHILS ABSOLUTE AUTO 6.26 K/mm3 (1.96-9.15); NEUTROPHILS PERCENT AUTO 70 % (41-73); Platelet Count 224 K/mm3 (150-400); RDW Coefficient Variation 12.3 % (11.7-14.2); RDW Standard Deviation 38.7 fL (35.1-46.3); White Blood Cell Count 8.98 K/mm3 (4.00-11.30)
[2024-07-04 17:58] LABS: Source, Urine Clean Catch
[2024-07-04 18:14] LABS: Appearance, Urine Clear (Clear); Bilirubin, Urine Neg (Neg); Blood, Urine Neg (Neg); Color, Urine Yellow (P-Yellow); Glucose Qualitative, Urine Neg (Neg); Ketones, Urine Neg (Neg); Leukocyte Esterase, Urine Neg (Neg); Nitrite, Urine Neg (Neg); Protein, Urine Neg (Neg); Urobilinogen, Urine NORM (Normal)
[2024-07-04 18:19] LABS: Ethanol (Alcohol), Blood, Med <3 mg/dL; Salicylate <1.7 mg/dL (2.8-20.0)
[2024-07-04 18:21] LABS: Acetaminophen, Random <2.0 ug/mL (10.0-30.0); Alanine Aminotransfer (ALT/SGP 37 U/L (12-78); Albumin/Globulin Ratio 1.2 (0.8-1.8); Alk Phos 69 U/L (50-136); Anion Gap 12 mmol/L (3-11); Aspartate Aminotrans (AST/SGOT 22 U/L (12-37); Bilirubin, Total 0.7 mg/dL (0.1-1.0); Blood Urea Nitrogen 17 mg/dL (8-24); Bun/Creatinine Ratio 22.4 (12.0-20.0); CO2, Blood 22 mmol/L (21-32); Calcium, Blood 8.9 mg/dL (8.5-10.1); Chloride, Blood 104 mmol/L (98-108); Creatinine, Blood 0.76 mg/dL (0.40-1.00); Globulin, Blood 3.4 g/dL (2.2-4.0); Glomerular Filtration Rate 98 (60-); Glucose, Blood 105 mg/dL (70-99); Potassium, Blood 3.7 mmol/L (3.5-5.5); Sodium, Blood 134 mmol/L (136-145); Total Protein, Blood 7.4 g/dL (6.4-8.2)
[2024-07-04 18:44] LABS: U Amphetamine Screen Not Detected; U Barbituate Screen Not Detected; U Benzodiazapine Screen Not Detected; U Buprenorphine Screen Not Detected; U Cannabinoids Screen DETECTED; U Cocaine Screen Not Detected; U Methadone Screen Not Detected; U Methamphetamine Screen Not Detected; U Opiates Screen Not Detected; U Oxycodone Screen Not Detected; U Phencyclidine Screen Not Detected
[2024-07-04] MEDS ORDERED: Albuterol HFA200 ACT/6.7 GM INH INH PRN (19:35)
[2024-07-04] MEDS ORDERED: OxyCODONE 7.5 mg/Acetam 325 mg TABLET PO PRN (19:35)
[2024-07-04] MEDS ORDERED: HyDROXyzine HCl 25 MG Tab PO SCH (21:00)
[2024-07-04] MEDS ORDERED: Gabapentin 300 MG Cap PO SCH ×2 (21:00)
[2024-07-04] MEDS ORDERED: TiZANidine HCl 4 MG Tab PO SCH (21:00)
[2024-07-04] MEDS ORDERED: Loratadine 10 MG Tab PO SCH (21:00)
[2024-07-04] MEDS ORDERED: LevETIRAcetam 500 MG Tab PO SCH (21:00)
[2024-07-04] MEDS ORDERED: MetFORMIN HCl 500 mg PO SCH (21:00)
[2024-07-04] MEDS ORDERED: TraZODone HCl 50 MG Tab PO SCH ×2 (21:00)
[2024-07-04] MEDS ORDERED: DULoxetine HCL 30 MG Cap DR PO SCH ×2 (21:00)
[2024-07-04] MEDS ORDERED: Lisinopril 20 MG Tab PO SCH (21:15)
[2024-07-04] MEDS ORDERED: Hydroxyzine HCl50 MG PO (22:36)
[2024-07-04] MEDS ORDERED: METFORMIN HCL500 M3 PO (22:37)
[2024-07-04] MEDS ORDERED: Zestril40 MG PO (22:39)
[2024-07-04] MEDS ORDERED: LEVETIRACETAM50014 PO (22:39)
[2024-07-04] MEDS ORDERED: VARENICLINE TA1 EACH PO (22:42)
[2024-07-05] MEDS ORDERED: Omeprazole 20 MG CapCR PO SCH (06:00)
[2024-07-05] MEDS ORDERED: MetFORMIN HCl 500 mg PO SCH ×2 (08:00→09:00)
[2024-07-05] MEDS ORDERED: Loratadine 10 MG Tab PO SCH ×2 (09:00→21:00)
[2024-07-05] MEDS ORDERED: Ofloxacin 0.3% Otic Soln 5 ML RIGHTEAR SCH (09:00)
[2024-07-05] MEDS ORDERED: Lisinopril 20 MG Tab PO SCH ×2 (09:00)
[2024-07-05] MEDS ORDERED: Varenicline Tartrate 1 MG Tablet PO SCH (09:00)
[2024-07-05] MEDS ORDERED: Gabapentin 300 MG Cap PO SCH (09:00)
[2024-07-05] MEDS ORDERED: Meloxicam 7.5 MG Tab PO SCH (09:00)
[2024-07-05 10:40] VITALS: BP 110/62
[2024-07-05] MEDS ORDERED: MELO7.5 PO (15:29)
== END 2024-07-05 14:00 | disposition other institution (70) ==
LOC: ER 16:39 → EOR 16:40
PROVIDERS: Physician Assistant; ADMIT Student in an Organized Health Care Education/Training Program
DX: F32.A Depression, unspecified (principal); R45.851 Suicidal ideations; C50.919 Malignant neoplasm of unspecified site of unspecified female breast; C77.3 Secondary and unspecified malignant neoplasm of axilla and upper limb lymph nodes; G40.909 Epilepsy, unspecified, not intractable, without status epilepticus; I10 Essential (primary) hypertension; E11.9 Type 2 diabetes mellitus without complications; K21.9 Gastro-esophageal reflux disease without esophagitis; E78.5 Hyperlipidemia, unspecified; Z87.891 Personal history of nicotine dependence; Z79.899 Other long term (current) drug therapy; Z88.1 Allergy status to other antibiotic agents
CPT/HCPCS: 36415; 80053; 80320; 81003; 81025; 85025; 93005; 93010; 99285-25; A9270; G0378; G0480

== ENCOUNTER 2024-07-05 11:52 | Inpatient (IN) | payer OTHER ==
[~2024-07-05 11:52] MED LIST changes: +Hydroxyzine HCl50 MG PO; +LEVETIRACETAM50014 PO; +METFORMIN HCL500 M3 PO; +VARENICLINE TA1 EACH PO; +Zestril40 MG PO
[2024-07-05] MEDS ORDERED: LORazepam 2 MG Tab PO PRN ×2 (13:45)
[2024-07-05] MEDS ORDERED: FLU VACC TS2024-25(6MOS UP)/PF 45 MCG/0.5 ML SYRINGE IM SCH (13:50)
[2024-07-05] MEDS ORDERED: RisperiDONE 1 MG Tab PO PRN (13:50)
[2024-07-05] MEDS ORDERED: Nicotine 14 MG PATCH TOP SCH (15:10)
[2024-07-05] MEDS ORDERED: MELO7.5 PO (15:29)
--- NOTE | 2024-07-05 16:33 | NUR ---
SHIFT SUMMARY/ADMISSION NOTE PT AxOx4. PLEASANT AND COOPERATIVE WITH CARE. PT'S ADMISSION COMPLETED. ARRIVED FROM ED FOR ADMISSION TO U AT 1404. PT REPORTS FEELING OVERWHELMED WITH LIFE LATELY RELATED TO NEW BREAST CANCER AND SEIZURE DISORDER DIAGNOSIS ALONG WITH SOME FINANCIAL INSTABILITY. PT IS TEARFUL ON AND OFF DURING ADMISSION BUT STATES SHE IS GLAD SHE IS HEAR AND WANTS TO GET HER BRAIN CLEAR THINKING SO SHE CAN FIGHT FOR HER DAUGHTER. PT WAS ORIENTED TO HER ROOM AND REPORTED A "SMALL SEIZURE COMING ON" WHILE WALKING TO HER ROOM. PT REACHED OUT TO STABILIZE HERSELF HOLDING ON TO THIS RN'S ARM FOR ABOUT 10 SECONDS, THEN STATED IT HAD PASSED AND SHE FELT FINE. PT WAS EDUCATED ON FALL RISK PRECAUTIONS AND HOW TO ASK FOR HELP. PATHOLOGY LAB TECHNICIAN MADE AWARE OF SITUATION. PT IS CURRENTLY RESTING IN HER BED. DENIES ANY NEEDS AT THIS TIME.
[2024-07-05 16:41] VITALS: BP 133/92
--- NOTE | 2024-07-05 16:58 | NUR ---
PT REPORTS EVERY OTHER TO DAILY SEIZURE ACTIVITY. DR. BAUTISTA AND SHELLY ASSISTANT FEDERAL PUBLIC DEFENDER NOTIFIED. IRIS COMPLETED FOR ER REPORTING THAT SHE HAS NOT HAD A SEIZURE IN WEEKS
[2024-07-05] MEDS ORDERED: OxyCODONE 7.5 mg/Acetam 325 mg TABLET PO PRN (17:00)
[2024-07-05 20:58] VITALS: BP 123/79
[2024-07-05] MEDS ORDERED: TraZODone HCl 100 MG Tab PO SCH (21:00)
[2024-07-05] MEDS ORDERED: HyDROXyzine HCl 25 MG Tab PO SCH (21:00)
[2024-07-05] MEDS ORDERED: Lisinopril 20 MG Tab PO SCH (21:00)
[2024-07-05] MEDS ORDERED: Loratadine 10 MG Tab PO SCH (21:00)
[2024-07-05] MEDS ORDERED: DULoxetine HCL 30 MG Cap DR PO SCH (21:00)
[2024-07-05] MEDS ORDERED: LevETIRAcetam 500 MG Tab PO SCH (21:00)
[2024-07-05] MEDS ORDERED: levETIRAcetam 750 MG TABLET PO SCH (21:00)
[2024-07-05] MEDS ORDERED: Varenicline Tartrate 1 MG Tablet PO SCH (21:00)
[2024-07-05] MEDS ORDERED: Gabapentin 400 MG Cap PO SCH (21:00)
--- NOTE | 2024-07-06 04:49 | NUR ---
At the start of the shift, Cami was observed resting in bed. She appeared well-groomed, calm, and sad, but expressed a hopeful outlook. She reported feeling better since her admission and denied any SI. Cami noted frustration with the time it took to receive help prior to admission and reported experiencing pain rated at 7/10 in her lower back and between her shoulder blades. She received PRN Percocet along with her scheduled medications. Cami also requested her nighttime medications early, expressing fatigue and a desire to rest. She slept through the night without incident, with normal chest rise and fall observed. Cami awoke at 0144 due reports of a nightmare, after which she independently showered. She returned to her room, quickly fell asleep, and awoke again at 0444, at which time she went to the sensory room. Safety precautions, including 15-minute checks, were consistently maintained throughout the shift.
[2024-07-06] MEDS ORDERED: Nicotine Polacrilex 2 MG Gum PO PRN (07:30)
[2024-07-06] MEDS ORDERED: MetFORMIN HCl 500 mg PO SCH (08:00)
[2024-07-06 08:32] VITALS: BP 123/78
[2024-07-06] MEDS ORDERED: Meloxicam 7.5 MG Tab PO SCH (09:00)
[2024-07-06] MEDS ORDERED: Gabapentin 300 MG Cap PO SCH (09:00)
[2024-07-06] MEDS ORDERED: QUEtiapine Fumarate 25 MG Tab PO SCH (10:00)
--- NOTE | 2024-07-06 18:28 | NUR ---
SHIFT SUMMARY PT AA&OX4 PLEASANT AND COOPERATIVE WITH CARE. SPEECH AND EYE CONTACT APPROPRIATE. COMPLIANT WITH MEDICATIONS. DENIES SI, AVH. LOWER BACK PAIN WELL MANAGED WITH CURRENT PAIN MANAGEMENT REGIMINE. NICORETTE PATCH DC AND GUM ORDERED PT IS ON CHANTIX. PT DENIES CURRENT SI. SHE REPORTS DECREASED ANXIETY AND FEEL SHE IS WHERE SHE "IS MENT TO BE " RIGHT NOW TO RESET AND PROCESS EVERYTHING THAT HAS HAPPENED RECENTLY. SHE DENIES ANY CURRENT NEEDS. WILL CONTINUE POC
[2024-07-06] MEDS ORDERED: QUEtiapine Fumarate 50 MG TAB PO SCH (21:00)
--- NOTE | 2024-07-07 04:46 | NUR ---
Patient resting in bed at the start of the shift, appearing well-groomed and calm, with an improved mood. Cami reported feeling better and expressed anticipation for the support the unit will provide her upon discharge. She denied SI/HI/AVTH. Cami endorsed lower back pain, rated at 7/10, and PRN Percocet was administered upon her request. Cami fell asleep without difficulty and appeared to sleep most of the shift, with noted chest rising and respirations within normal limits. Safety precautions were maintained with 15-minute checks throughout the shift.
[2024-07-07] MEDS ORDERED: BusPIRone HCl 5 MG Tab PO SCH (11:30)
--- NOTE | 2024-07-07 17:25 | NUR ---
SHIFT SUMMARY PT A/O X4; PLEASANT AND COOPERATIVE WITH CARE. SHE REPORTS THAT SHE IS DOING BETTER AND IS THANKFUL THAT SHE IS ABLE TO BE HERE AND FOCUS ON HERSELF. SHE DENIES SI, HI, OR ANY HALLUCINATIONS. SHE REPORTED FEELING DIZZY AFTER TAKING HER SEROQUEL TODAY. SHE WAS SWITCHED TO [facility]PAR AND SHE REPORTS THAT SHE FEELS BETTER SINCE SWITCHING. PT TREATED FOR PAIN PER EMR. PT MONITORED VIA Q15 CHECKS.
--- NOTE | 2024-07-08 05:35 | NUR ---
Cami was noted resting in bed at the start of the shift. She appeared well-groomed, calm, and demonstrated engagement with both peers and staff during snack time. Cami reported a positive day but expressed concern regarding access to resources, which she stated had been denied in the past. Support and encouragement provided. Cami denied SI/HI/AVTH. She reported lower back pain rated at 7/10 and was administered PRN Percocet per her request. Cami subsequently fell asleep without difficulty, with Normal chest rise was observed, and no signs of distress were noted during sleep. Pt awoke at 0430 requesting pain medication; PRN Percocet given per eMar. Safety checks were conducted every 15 minutes throughout the shift.
[2024-07-08 07:33] VITALS: BP 118/79
[2024-07-08] MEDS ORDERED: HydrOXYzine Pamoate 25 MG Cap PO PRN (10:55)
--- NOTE | 2024-07-08 18:01 | NUR ---
SHIFT SUMMARY PT A/O X4; PLEASANT AND COOPERATIVE WITH CARE. SHE DENIES SI, HI, OR ANY HALLUCINATIONS. SHE FEELS THAT SHE IS DOING MUCH BETTER AND IS FINALLY "STARTING TO FEEL LIKE MYSELF." SHE FEELS LIKE SHE IS READY TO DISCHARGE BUT WOULD LIKE HELP WITH RESOURCES AND CARE COORDINATION. SHE SAID THAT SHE NEEDS TO GET A LOANER PHONE FROM [facility] AND MAY NEED HELP WITH TRANSPORTATION WHEN SHE DISCHARGES.
[2024-07-08 18:52] VITALS: BP 118/73
[2024-07-08 19:49] VITALS: BP 104/84
--- NOTE | 2024-07-09 04:20 | NUR ---
At the start of the shift, pt observed in the dayroom watching television with peers and staff. Pt appeared well-groomed, calm, and reported feeling ready for discharge. Pt denied SI, HI, AVH, and endorsed back pain at 7/10. PRN Percocet was administered per request. Pt subsequently fell asleep without difficulty, with normal chest rise and fall observed. No signs of distress noted during sleep. Safety checks conducted every 15 minutes throughout the shift.
[2024-07-09 08:03] VITALS: BP 116/80
[2024-07-09 08:58] VITALS: BP 132/88
[2024-07-09] MEDS ORDERED: Seroquel Xr50 MG PO (11:40)
--- NOTE | 2024-07-09 14:25 | NUR ---
DISCHARGE NOTE PT A/O X4; PLEASANT AND COOPERATIVE WITH CARE. SHE DENIES SI, HI, OR ANY HALLUCINATIONS. HER RN FACULTY AT [facility] WAS ABLE TO SET HER UP WITH RENTAL ASSISTANCE. HER FOLLOW UP APPOINTMENTS HAVE BEEN SCHEDULED AND HER RIDE TO HER FOLLOW UP APPOINTMENT WAS SCHEDULED WELL. BELONGINGS RETURNED TO PATIENT UPON DISCHARGE AND [employer] PHONE FROM [facility] GIVEN TO PATIENT WELL. MEDICATIONS FAXED TO [facility].
== END 2024-07-09 13:52 | disposition home or self-care (01) | DRG 881 ==
LOC: BHU 11:52
PROVIDERS: ADMIT Psychiatry & Neurology Psychiatry
DX: F43.21 Adjustment disorder with depressed mood (principal); I10 Essential (primary) hypertension; E78.5 Hyperlipidemia, unspecified; M54.9 Dorsalgia, unspecified; K21.9 Gastro-esophageal reflux disease without esophagitis; G89.29 Other chronic pain; F41.9 Anxiety disorder, unspecified; Z88.1 Allergy status to other antibiotic agents; Z91.51 Personal history of suicidal behavior; Z90.89 Acquired absence of other organs; Z98.890 Other specified postprocedural states; Z87.891 Personal history of nicotine dependence; Z85.3 Personal history of malignant neoplasm of breast; Z79.899 Other long term (current) drug therapy
CPT/HCPCS: A9270

== ENCOUNTER → 2024-08-16 | Outpatient (CLI) | payer OTHER ==
[~2024-08-16] MED LIST changes: +MELO7.5 PO; +Seroquel Xr50 MG PO
[2024-08-16 12:35] LABS: BASOPHILS ABSOLUTE AUTO 0.05 K/mm3 (0.00-0.23); BASOPHILS PERCENT AUTO 1 % (0-2); EOSINOPHILS ABSOLUTE AUTO 0.14 K/mm3 (0.00-0.68); EOSINOPHILS PERCENT AUTO 2 % (0-6); Hematocrit 42.4 % (33.0-51.0); Hemoglobin 14.5 g/dL (11.5-16.0); IMMATURE GRAN ABSOLUTE AUTO 0.01 K/mm3 (0.00-0.10); IMMATURE GRAN PERCENT AUTO 0 % (0-1); LYMPHOCYTES ABSOLUTE AUTO 1.95 K/mm3 (0.84-5.20); LYMPHOCYTES PERCENT AUTO 32 % (21-46); MONOCYTES ABSOLUTE AUTO 0.35 K/mm3 (0.16-1.47); MONOCYTES PERCENT AUTO 6 % (4-13); Mean Corpuscular HGB 29.3 pg (26.0-34.0); Mean Corpuscular HGB Conc 34.2 g/dL (31.5-36.5); Mean Corpuscular Volume 86 fL (80-100); NEUTROPHILS ABSOLUTE AUTO 3.66 K/mm3 (1.96-9.15); NEUTROPHILS PERCENT AUTO 59 % (41-73); Platelet Count 234 K/mm3 (150-400); RDW Standard Deviation 37.6 fL (35.1-46.3); Red Blood Cell Count 4.95 M/mm3 (3.80-5.20); White Blood Cell Count 6.16 K/mm3 (4.00-11.30)
== END ==
LOC: LAB SHORT 08:45 → LAB 08:45
PROVIDERS: Nurse Practitioner Family
DX: R53.83 Other fatigue (principal)
CPT/HCPCS: 83540; 83550; 85025

== ENCOUNTER → 2024-09-20 | Outpatient (CLI) | payer OTHER | END | disposition home or self-care (01) | LOC: LAB SHORT 14:28 → LAB 14:28 | DX: Z86.14 Personal history of Methicillin resistant Staphylococcus aureus infection (principal) | CPT/HCPCS: 87081 ==

== ENCOUNTER → 2024-09-25 | Outpatient (CLI) | payer OTHER | LOC: LAB 14:09 → LAB SHORT 14:09 | DX: Z86.14 Personal history of Methicillin resistant Staphylococcus aureus infection (principal) | CPT/HCPCS: 87081 ==

== ENCOUNTER 2024-10-06 16:37 | Emergency (ER) | payer OTHER ==
[~2024-10-06] VITALS: Ht 182.9 cm; Wt 142.9 kg
[2024-10-06 17:30] LABS: BASOPHILS ABSOLUTE AUTO 0.05 K/mm3 (0.00-0.23); BASOPHILS PERCENT AUTO 2 % (0-2); EOSINOPHILS ABSOLUTE AUTO 0.06 K/mm3 (0.00-0.68); EOSINOPHILS PERCENT AUTO 2 % (0-6); Hematocrit 34.8 % (33.0-51.0); Hemoglobin 12.2 g/dL (11.5-16.0); IMMATURE GRAN ABSOLUTE AUTO 0.01 K/mm3 (0.00-0.10); IMMATURE GRAN PERCENT AUTO 0 % (0-1); LYMPHOCYTES ABSOLUTE AUTO 1.64 K/mm3 (0.84-5.20); LYMPHOCYTES PERCENT AUTO 56 % (21-46); MONOCYTES ABSOLUTE AUTO 0.13 K/mm3 (0.16-1.47); MONOCYTES PERCENT AUTO 4 % (4-13); Mean Corpuscular HGB 29.8 pg (26.0-34.0); Mean Corpuscular HGB Conc 35.1 g/dL (31.5-36.5); Mean Corpuscular Volume 85 fL (80-100); NEUTROPHILS ABSOLUTE AUTO 1.04 K/mm3 (1.96-9.15); NEUTROPHILS PERCENT AUTO 36 % (41-73); Platelet Count 214 K/mm3 (150-400); RDW Standard Deviation 39.2 fL (35.1-46.3); Red Blood Cell Count 4.09 M/mm3 (3.80-5.20); White Blood Cell Count 2.93 K/mm3 (4.00-11.30)
[2024-10-06 17:47] LABS: Albumin, Blood 3.8 g/dL (3.4-5.0); Albumin/Globulin Ratio 1.2 (0.8-1.8); Bilirubin, Total 0.5 mg/dL (0.1-1.0); Bun/Creatinine Ratio 12.5 (12.0-20.0); Calcium, Blood 8.7 mg/dL (8.5-10.1); Creatinine, Blood 1.12 mg/dL (0.40-1.00); Globulin, Blood 3.1 g/dL (2.2-4.0); Potassium, Blood 4.3 mmol/L (3.5-5.5); Total Protein, Blood 6.9 g/dL (6.4-8.2)
[2024-10-06] MEDS ORDERED: Ipratropium/Albuterol SulF 2.5-0.5MG/3 ML Amp INH ONE (21:55)
[2024-10-06] MEDS ORDERED: Dexamethasone Sod Phos 10 MG/ML 1ML VIAL PO ONE (21:55)
[2024-10-06 23:00] VITALS: BP 136/75
== END 2024-10-07 00:08 | disposition home or self-care (01) ==
LOC: ER 16:37
PROVIDERS: Physician Assistant
DX: R06.02 Shortness of breath (principal); R21 Rash and other nonspecific skin eruption; Z88.1 Allergy status to other antibiotic agents; Z79.899 Other long term (current) drug therapy; Z79.1 Long term (current) use of non-steroidal anti-inflammatories (NSAID); Z79.84 Long term (current) use of oral hypoglycemic drugs; I10 Essential (primary) hypertension; E78.5 Hyperlipidemia, unspecified; K21.9 Gastro-esophageal reflux disease without esophagitis; Z87.891 Personal history of nicotine dependence
CPT/HCPCS: 71046; 71260; 80053; 83880; 85025; 85379; 93005; 93010; 94640; 94664; 99285-25; J1100; Q9967

== ENCOUNTER → 2024-10-17 | Outpatient (CLI) | payer OTHER ==
[~2024-10-17] MED LIST changes: +ANAS1 PO
[2024-10-17 21:21] LABS: Microalbumin, Random Urine 22.4 mg/L (0.000-20.000)
== END | disposition home or self-care (01) ==
LOC: LAB 18:38 → LAB SHORT 18:38
PROVIDERS: Family Medicine
DX: I10 Essential (primary) hypertension (principal)
CPT/HCPCS: 82043; 82570

== ENCOUNTER 2024-10-31 05:46 | Day surgery (SDC) | payer OTHER ==
[2024-10-31] VITALS (16 sets, daily range): BP systolic 109–167; BP diastolic 69–94
[~2024-10-31] VITALS: Ht 180.3 cm; Wt 148.0 kg
[2024-10-31] MEDS ORDERED: Lactated Ringer's 1,000 ML IV SCH ×2 (06:15→14:00)
[2024-10-31] MEDS ORDERED: CeFAZolin Sodium 2,000 MG in NS 100 ML IV SCH (06:15)
[2024-10-31] MEDS ORDERED: propofoL 200 ML IV ONE (06:25)
[2024-10-31] MEDS ORDERED: Dexmedetomidine HCL 200 MCG / 2 ML ONE (06:25)
[2024-10-31] MEDS ORDERED: Lidocaine HCl 4% 5 ML SDA ONE (06:25)
[2024-10-31] MEDS ORDERED: Scopolamine Hydrobromide Patch TOP ONE (06:50)
[2024-10-31] MEDS ORDERED: Acetaminophen 500 MG Tab PO ONE (06:50)
[2024-10-31] MEDS ORDERED: Bupivacaine 0.5% W/EPI 1:200000 SDV 30 ML Vial ONE (06:51)
[2024-10-31] MEDS ORDERED: Dexamethasone Sod Phos 10 MG/ML 1ML VIAL ONE (06:56)
[2024-10-31] MEDS ORDERED: Ketorolac Tromethamine 30mg Vial ONE (06:56)
[2024-10-31] MEDS ORDERED: Rocuronium Bromide 10 MG/ML 5ML Injection IV ONE ×3 (06:56→09:06)
[2024-10-31] MEDS ORDERED: Ondansetron HCl 2 MG / ML 2ML Vial ONE (06:56)
[2024-10-31] MEDS ORDERED: Lidocaine HCl 2% 20 ML MDV ONE (06:56)
[2024-10-31] MEDS ORDERED: DiphenhydrAMINE HCl 50 MG/ML 1ML Vial ONE (06:56)
[2024-10-31] MEDS ORDERED: Metoclopramide HCl 5MG / ML 2ML Vial ONE (06:56)
[2024-10-31] MEDS ORDERED: Sugammadex Sodium 200 MG/2ML SDV (100 MG/ML) ONE (06:57)
[2024-10-31] MEDS ORDERED: HYDROmorphone HCl/Pf 1MG SYR ONE ×4 (06:57→13:04)
[2024-10-31] MEDS ORDERED: Ketamine HCl 100 MG / ML 5ML Vial ONE (06:57)
[2024-10-31] MEDS ORDERED: Glycopyrrolate 0.2 MG/ML 5ML VIAL ONE (07:00)
[2024-10-31] MEDS ORDERED: CeFAZolin Sodium 2,000 MG VIAL ONE (07:01)
[2024-10-31] MEDS ORDERED: propofoL 100 ML IV ONE (07:03)
--- NOTE | 2024-10-31 07:32 | NUR ---
0620 TO DS VIA W/C PT CONFIRMED SURGERY AND SURGEON. PRE OP TEACHING DONE. FRIEND AT BEDSIDE
[2024-10-31] MEDS ORDERED: FentaNYL Citrate 50 MCG/ML 2 ML Injection ONE (09:03)
[2024-10-31] MEDS ORDERED: propofoL 150 ML IV ONE (09:30)
[2024-10-31] MEDS ORDERED: CeFAZolin Sodium 3,000 MG VIAL ONE (12:05)
[2024-10-31] MEDS ORDERED: propofoL 20 ML IV ONE (12:19)
[2024-10-31] MEDS ORDERED: OxyCODONE 7.5 mg/Acetam 325 mg TABLET PO PRN (14:00)
[2024-10-31] MEDS ORDERED: Naloxone HCl 0.4MG / ML 1ML Vial IV PRN (14:00)
[2024-10-31] MEDS ORDERED: Simethicone 80 MG Chew PO PRN (14:00)
[2024-10-31] MEDS ORDERED: Promethazine HCl 12.5 MG Supp PR PRN (14:00)
[2024-10-31] MEDS ORDERED: FLU VACC TS2024-25(6MOS UP)/PF 45 MCG/0.5 ML SYRINGE IM SCH (14:00)
[2024-10-31] MEDS ORDERED: Ondansetron HCl 2 MG / ML 2ML Vial IV PRN (14:05)
[2024-10-31] MEDS ORDERED: Ondansetron 4 MG TAB PO PRN (14:05)
[2024-10-31] MEDS ORDERED: HYDROmorphone HCl 0.5 MG/0.5 ML SYR IV PRN (14:10)
[2024-10-31] MEDS ORDERED: CeFAZolin Sodium 3,000 MG in NS 100 ML IV SCH ×2 (14:30→18:00)
[2024-10-31] MEDS ORDERED: VERZENIO150 MG PO (14:42)
--- NOTE | 2024-10-31 16:58 | NUR ---
POST-OP PATIENT TO ROOM 228 @ 1400 VITALS STABLE, UP TO BATHROOM TO TRY TO VOID. REPORTS FEELING PRESSURE, AND "URGE" NO URINE OUTPUT. PAIN REPORTED TO BE 9/10 AND PAIN PILL GIVEN. DENIES NAUSEA. LAP SITES ARE [facility] AND C.D.I. SCDS, AND K-PAD IN PLACE EYE MASK OFFERED AND PATIENT IS RESTING AT THIS TIME.
[2024-10-31] MEDS ORDERED: LevETIRAcetam 500 MG Tab PO SCH (21:00)
[2024-10-31] MEDS ORDERED: VERZENIO 150 MG PO SCH (21:00)
[2024-10-31] MEDS ORDERED: Lisinopril 20 MG Tab PO SCH (21:00)
[2024-10-31] MEDS ORDERED: Loratadine 10 MG Tab PO SCH (21:00)
[2024-10-31] MEDS ORDERED: QUEtiapine Fumarate 100 MG Tab PO SCH (21:00)
[2024-10-31] MEDS ORDERED: Gabapentin 300 MG Cap PO SCH (21:00)
[2024-10-31] MEDS ORDERED: DULoxetine HCL 60 MG Capsule DR PO SCH (21:00)
[2024-11-01 01:39] VITALS: BP 133/74
[2024-11-01 04:23] VITALS: BP 151/98
[2024-11-01 05:24] LABS: BASOPHILS ABSOLUTE AUTO 0.01 K/mm3 (0.00-0.23); BASOPHILS PERCENT AUTO 0 % (0-2); EOSINOPHILS ABSOLUTE AUTO 0.01 K/mm3 (0.00-0.68); EOSINOPHILS PERCENT AUTO 0 % (0-6); Hematocrit 32.2 % (33.0-51.0); Hemoglobin 11.2 g/dL (11.5-16.0); IMMATURE GRAN ABSOLUTE AUTO 0.01 K/mm3 (0.00-0.10); IMMATURE GRAN PERCENT AUTO 0 % (0-1); LYMPHOCYTES ABSOLUTE AUTO 1.14 K/mm3 (0.84-5.20); LYMPHOCYTES PERCENT AUTO 34 % (21-46); MONOCYTES ABSOLUTE AUTO 0.17 K/mm3 (0.16-1.47); MONOCYTES PERCENT AUTO 5 % (4-13); Mean Corpuscular HGB 31.1 pg (26.0-34.0); Mean Corpuscular HGB Conc 34.8 g/dL (31.5-36.5); Mean Corpuscular Volume 89 fL (80-100); Mean Platelet Volume 10.3 fL (9.1-12.4); NEUTROPHILS ABSOLUTE AUTO 2.04 K/mm3 (1.96-9.15); NEUTROPHILS PERCENT AUTO 60 % (41-73); Platelet Count 219 K/mm3 (150-400); RDW Coefficient Variation 14.8 % (11.7-14.2); RDW Standard Deviation 47.9 fL (35.1-46.3); White Blood Cell Count 3.38 K/mm3 (4.00-11.30)
--- NOTE | 2024-11-01 06:32 | NUR ---
SHIFT SUMMARY NOC. PT POD 1 FOR TOTAL LAP HYSTERECTOMY. PT A/O X4. LAP SITES X5 C/D/I, ABDOMINAL BINDER IN PLACE. PT MEDICATED FOR PAIN WITH ORAL PERCOCET 7.5/325 2 TABS AT A TIME. VSS, HTN NOTED AT TIMES. PT AMBULATING WELL AND VOIDING URINE. PT TOLERATING PO INTAKE WELL, DENIES N/V. PT PLEASANT AND COOPERATIVE WITH CARE. MAKES NEEDS KNOWN, CALL LIGHT IN REACH.
[2024-11-01 07:45] VITALS: BP 141/83
[2024-11-01] MEDS ORDERED: Docusate Sodium 100 MG Cap PO SCH (09:00)
[2024-11-01] MEDS ORDERED: Meloxicam 7.5 MG Tab PO SCH (09:00)
[2024-11-01] MEDS ORDERED: Anastrozole 1 MG TAB PO SCH (09:00)
[2024-11-01] MEDS ORDERED: Gabapentin 300 MG Cap PO SCH (09:00)
[2024-11-01] MEDS ORDERED: SIME80CH PO (11:37)
[2024-11-01 14:25] VITALS: BP 132/79
--- NOTE | 2024-11-01 14:30 | NUR ---
DISCHARGE NOTE PT IS ALERT, INDEPENDENT IN ROOM. PAIN IS CONTROLLED W/ PAIN MEDS PER EMAR, PT HAS FILLED PRESCRIPTION AT HOME FOR PAIN CONTROL. INCISION SITES X5 INTACT, DR. CHAVARRIA CAME TO BEDSIDE TO ASSESS REDNESS/RAISED SKIN AROUND SITES, PT OK TO DISCHARGE. VSS. PT TOLERATING REG DIET AND PO FLUIDS. SCANT VAGINAL BLEEDING. DISCHARGE INSTRUCTIONS REVIEWED W/ PT, COPY GIVEN. PT DC'D IN STABLE CONDITION VIA WC W/ ALL BELONGINGS TO PRIVATE RIDE HOME.
== END 2024-11-01 14:37 | disposition home or self-care (01) ==
LOC: ORSCMMR 05:46 → ORD 07:30 → SURS 13:40 → ORSCMMR 11-01 14:37 → ORD 11-07 11:30
PROVIDERS: Obstetrics & Gynecology
PROC: 0HB8XZX Excision of Buttock Skin, External Approach, Diagnostic (ICD-10-PCS; principal; 2024-10-31 07:30)
PROC: 0UT2FZZ Resection of Bilateral Ovaries, Via Natural or Artificial Opening With Percutaneous Endoscopic Assistance (ICD-10-PCS; principal; 2024-10-31 07:30)
PROC: 0UT7FZZ Resection of Bilateral Fallopian Tubes, Via Natural or Artificial Opening With Percutaneous Endoscopic Assistance (ICD-10-PCS; principal; 2024-10-31 07:30)
PROC: 0UT9FZZ Resection of Uterus, Via Natural or Artificial Opening With Percutaneous Endoscopic Assistance (ICD-10-PCS; principal; 2024-10-31 07:30)
PROC: 8E0W0CZ Robotic Assisted Procedure of Trunk Region, Open Approach (ICD-10-PCS; principal; 2024-10-31 07:30)
DX: C50.912 Malignant neoplasm of unspecified site of left female breast (principal); Z80.41 Family history of malignant neoplasm of ovary; Z80.0 Family history of malignant neoplasm of digestive organs; D25.9 Leiomyoma of uterus, unspecified; N83.292 Other ovarian cyst, left side; N83.291 Other ovarian cyst, right side; D17.1 Benign lipomatous neoplasm of skin and subcutaneous tissue of trunk; I10 Essential (primary) hypertension; Z87.891 Personal history of nicotine dependence; E66.01 Morbid (severe) obesity due to excess calories; Z68.42 Body mass index [BMI] 45.0-49.9, adult; Z79.899 Other long term (current) drug therapy
CPT/HCPCS: 36415; 85025; 86850; 86900; 86901; 88305; 88307; 94762; A9270; J0690; J1100; J1171; J1200; J1885; J2003; J2405; J2704; J2765; J3010; J7120

== ENCOUNTER 2025-05-29 09:03 | Observation (INO) | payer OTHER ==
[~2025-05-29] VITALS: Ht 182.9 cm; Wt 142.9 kg
[~2025-05-29 09:03] MED LIST changes: +QUET200 PO; +SIME80CH PO; -Seroquel Xr50 MG PO; +VERZENIO150 MG PO
[2025-05-29 10:15] LABS: Source, Urine Clean Catch
[2025-05-29 10:21] LABS: Bilirubin, Urine Neg (Neg); Glucose Qualitative, Urine Neg (Neg); Ketones, Urine Neg (Neg); Leukocyte Esterase, Urine 3+ (Neg); Protein, Urine Neg (Neg); Specific Gravity, Urine 1.025 (1.003-1.022); Urobilinogen, Urine NORM (Normal)
[2025-05-29 10:28] LABS: Color, Urine Yellow (P-Yellow)
[2025-05-29 10:30] LABS: Red Blood Cells, Urine 0-2 /hpf (0-2); White Blood Cells, Urine 25-50 /hpf (0-5)
[2025-05-29 10:31] LABS: Ethanol (Alcohol), Blood, Med <3 mg/dL; Salicylate <1.7 mg/dL (2.8-20.0)
[2025-05-29 10:37] LABS: U Amphetamine Screen Not Detected; U Barbituate Screen Not Detected; U Benzodiazapine Screen Not Detected; U Buprenorphine Screen Not Detected; U Cannabinoids Screen DETECTED; U Cocaine Screen Not Detected; U Methadone Screen Not Detected; U Methamphetamine Screen Not Detected; U Opiates Screen Not Detected; U Oxycodone Screen Not Detected; U Phencyclidine Screen Not Detected
[2025-05-29 11:16] LABS: Acetaminophen, Random <2.0 ug/mL (10.0-30.0); Alanine Aminotransfer (ALT/SGP 39 U/L (12-78); Albumin, Blood 3.9 g/dL (3.4-5.0); Albumin/Globulin Ratio 1.2 (0.8-1.8); Anion Gap 7 mmol/L (3-11); Aspartate Aminotrans (AST/SGOT 20 U/L (12-37); Bilirubin, Total 0.5 mg/dL (0.1-1.0); Blood Urea Nitrogen 24 mg/dL (8-24); CO2, Blood 29 mmol/L (21-32); Calcium, Blood 9.6 mg/dL (8.5-10.1); Chloride, Blood 106 mmol/L (98-108); Creatinine, Blood 0.99 mg/dL (0.40-1.00); Globulin, Blood 3.3 g/dL (2.2-4.0); Glucose, Blood 113 mg/dL (70-99); Potassium, Blood 3.9 mmol/L (3.5-5.5); Sodium, Blood 138 mmol/L (136-145); Total Protein, Blood 7.2 g/dL (6.4-8.2)
[2025-05-29 11:23] LABS: BASOPHILS ABSOLUTE AUTO 0.03 K/mm3 (0.00-0.23); BASOPHILS PERCENT AUTO 1 % (0-2); EOSINOPHILS ABSOLUTE AUTO 0.04 K/mm3 (0.00-0.68); EOSINOPHILS PERCENT AUTO 1 % (0-6); Hematocrit 34.7 % (33.0-51.0); Hemoglobin 12.2 g/dL (11.5-16.0); IMMATURE GRAN ABSOLUTE AUTO 0.01 K/mm3 (0.00-0.10); IMMATURE GRAN PERCENT AUTO 0 % (0-1); LYMPHOCYTES ABSOLUTE AUTO 1.32 K/mm3 (0.84-5.20); LYMPHOCYTES PERCENT AUTO 43 % (21-46); MONOCYTES ABSOLUTE AUTO 0.20 K/mm3 (0.16-1.47); MONOCYTES PERCENT AUTO 7 % (4-13); Mean Corpuscular HGB Conc 35.2 g/dL (31.5-36.5); Mean Corpuscular Volume 94 fL (80-100); NEUTROPHILS ABSOLUTE AUTO 1.45 K/mm3 (1.96-9.15); NEUTROPHILS PERCENT AUTO 48 % (41-73); NRBC ABSOLUTE 0.00 K/mm3 (0.00-0.02); NRBC Auto 0.0 /100 WBC (0.0-0.2); Platelet Count 173 K/mm3 (150-400); RDW Coefficient Variation 12.2 % (11.7-14.2); RDW Standard Deviation 42.5 fL (35.1-46.3)
[2025-05-29] MEDS ORDERED: LEVE500 PO (12:43)
[2025-05-29 14:56] LABS: Influenza A, PCR NEGATIVE (NEGATIVE); Influenza B, PCR NEGATIVE (NEGATIVE); Resp Syncytial Virus, PCR NEGATIVE (NEGATIVE); SARS-Cov-2 (COVID-19) PCR, MMC NEGATIVE (NEGATIVE)
[2025-05-29] MEDS ORDERED: Ketorolac Tromethamine 15mg Vial IM ONE (16:25)
[2025-05-29] MEDS ORDERED: OxyCODONE 7.5 mg/Acetam 325 mg TABLET PO ONE ×2 (17:25→18:30)
[2025-05-29] MEDS ORDERED: DULoxetine HCL 30 MG Cap DR PO SCH (21:05)
[2025-05-29] MEDS ORDERED: VERZENIO 150 MG PO SCH (21:15)
[2025-05-30] MEDS ORDERED: Ativan1 MG PO (10:26)
[2025-05-30] MEDS ORDERED: OxyCODONE 7.5 mg/Acetam 325 mg TABLET PO ONE ×2 (13:20→18:50)
[2025-05-30 20:25] VITALS: BP 174/105
== END 2025-05-30 20:48 ==
LOC: ER 09:03 → EOR 09:04 → EDBEDREQ 05-30 15:22 → EDBEDREQSVC 05-30 15:22 → EOR 05-30 20:48
PROVIDERS: Physician Assistant; ADMIT Emergency Medicine
DX: F32.9 Major depressive disorder, single episode, unspecified (principal); R45.851 Suicidal ideations; F43.21 Adjustment disorder with depressed mood; R56.9 Unspecified convulsions; C50.919 Malignant neoplasm of unspecified site of unspecified female breast; I10 Essential (primary) hypertension; Z87.891 Personal history of nicotine dependence; Z88.1 Allergy status to other antibiotic agents; Z79.899 Other long term (current) drug therapy
CPT/HCPCS: 36415; 80053; 80320; 81001; 81025; 85025; 86592; 87086; 87637; 99285; A9270; G0378; G0480